=== PATIENT | female | born 1945 | race Caucasian/White ===

== ENCOUNTER 2017-12-15 05:53 | Day surgery (SDC) | payer MEDICARE ==
[~2017-12-15] VITALS: Ht 160 cm; Wt 59.0 kg
[~2017-12-15 05:53] MED LIST: ACYC800; ALBIPROI INH; ALLERGY PO; ASPI81EC PO; AZIT250; BUDE6HFA INH; CVS EYE BOTHEYES; GABA300; LOSA50 PO; MONT10T PO; OXYC5; PRED20; PROAIR INH; ROSU5 PO; STIOLTO UD; TRIAZOLAM
[2017-12-15] MEDS ORDERED: CLOP75 PO (13:16)
== END 2017-12-15 17:15 | disposition home or self-care (01) ==
LOC: MHTC 05:53
PROC: 047N3ZZ Dilation of Left Popliteal Artery, Percutaneous Approach (ICD-10-PCS; principal; 2017-12-15)
PROC: 047Q3ZZ Dilation of Left Anterior Tibial Artery, Percutaneous Approach (ICD-10-PCS; principal; 2017-12-15)
PROC: 047U3ZZ Dilation of Left Peroneal Artery, Percutaneous Approach (ICD-10-PCS; principal; 2017-12-15)
PROC: 047L35Z Dilation of Left Femoral Artery with Two Drug-eluting Intraluminal Devices, Percutaneous Approach (ICD-10-PCS; principal; 2017-12-15)
PROC: 04CQ3ZZ Extirpation of Matter from Left Anterior Tibial Artery, Percutaneous Approach (ICD-10-PCS; principal; 2017-12-15)
DX: I70.212 Atherosclerosis of native arteries of extremities with intermittent claudication, left leg (principal); I25.10 Atherosclerotic heart disease of native coronary artery without angina pectoris; Z87.891 Personal history of nicotine dependence; J44.9 Chronic obstructive pulmonary disease, unspecified; E78.5 Hyperlipidemia, unspecified; K21.9 Gastro-esophageal reflux disease without esophagitis
CPT/HCPCS: 37226; 37228; 37232; 75630; 75710; 75774; 85347; 99152; 99153; C1725; C1769; C1876; C1885; C1887; C1894; J0360; J1644; J2250; J2405; J2720; J3010; J7030; J7040; Q9967

== ENCOUNTER 2018-01-13 10:43 | Emergency (ER) | payer MEDICARE ==
[~2018-01-13] VITALS: Ht 160 cm; Wt 59.4 kg
[~2018-01-13 10:43] MED LIST changes: +CLOP75 PO
[2018-01-13] MEDS ORDERED: Ativan0.5 MG PO (11:18)
[2018-01-13 12:16] LABS: Glomerular Filtration Rate >60 (60-)
== END 2018-01-13 11:20 | disposition home or self-care (01) ==
LOC: ER 10:43
PROVIDERS: Internal Medicine Interventional Cardiology
DX: Z48.812 Encounter for surgical aftercare following surgery on the circulatory system (principal); F41.9 Anxiety disorder, unspecified; Z79.899 Other long term (current) drug therapy; Z79.82 Long term (current) use of aspirin; Z79.01 Long term (current) use of anticoagulants; Z87.891 Personal history of nicotine dependence
CPT/HCPCS: 36415; 82565; 99282

== ENCOUNTER 2018-01-15 11:35 | Emergency (ER) | payer MEDICARE ==
[~2018-01-15] VITALS: Ht 160 cm; Wt 59.0 kg
[~2018-01-15 11:35] MED LIST changes: +Ativan0.5 MG PO
== END 2018-01-15 12:59 | disposition home or self-care (01) ==
LOC: ER 11:35
DX: L76.22 Postprocedural hemorrhage of skin and subcutaneous tissue following other procedure (principal); I10 Essential (primary) hypertension; J44.9 Chronic obstructive pulmonary disease, unspecified; E78.5 Hyperlipidemia, unspecified; Z87.891 Personal history of nicotine dependence; Z79.899 Other long term (current) drug therapy; Z79.01 Long term (current) use of anticoagulants; Z79.82 Long term (current) use of aspirin
CPT/HCPCS: 99282

== ENCOUNTER 2018-01-15 16:30 | Emergency (ER) | payer MEDICARE ==
[~2018-01-15] VITALS: Ht 160 cm; Wt 59.0 kg
[2018-01-15 18:47] LABS: BASOPHILS ABSOLUTE AUTO 0.02 K/mm3 (0.00-0.23); BASOPHILS PERCENT AUTO 0 % (0-2); EOSINOPHILS ABSOLUTE AUTO 0.09 K/mm3 (0.00-0.68); EOSINOPHILS PERCENT AUTO 2 % (0-6); Hematocrit 32.2 % (33.0-51.0); Hemoglobin 10.7 g/dL (11.5-16.0); IMMATURE GRAN ABSOLUTE AUTO 0.01 K/mm3 (0.00-0.10); IMMATURE GRAN PERCENT AUTO 0 % (0-1); LYMPHOCYTES ABSOLUTE AUTO 0.61 K/mm3 (0.84-5.20); LYMPHOCYTES PERCENT AUTO 11 % (21-46); MONOCYTES ABSOLUTE AUTO 0.41 K/mm3 (0.16-1.47); MONOCYTES PERCENT AUTO 8 % (4-13); Mean Corpuscular HGB 30.7 pg (26.0-34.0); Mean Corpuscular HGB Conc 33.2 g/dL (31.5-36.5); Mean Corpuscular Volume 92 fL (80-100); Mean Platelet Volume 10.2 fL (9.1-12.4); NEUTROPHILS PERCENT AUTO 79 % (41-73); Platelet Count 211 K/mm3 (150-400); RDW Coefficient Variation 14.1 % (11.7-14.2); RDW Standard Deviation 47.2 fL (35.1-46.3); Red Blood Cell Count 3.49 M/mm3 (3.80-5.20); White Blood Cell Count 5.34 K/mm3 (4.00-11.30)
== END 2018-01-15 20:00 | disposition home or self-care (01) ==
LOC: ER 16:30
PROVIDERS: Emergency Medicine
DX: L76.22 Postprocedural hemorrhage of skin and subcutaneous tissue following other procedure (principal); I73.9 Peripheral vascular disease, unspecified; D68.32 Hemorrhagic disorder due to extrinsic circulating anticoagulants; T45.525A Adverse effect of antithrombotic drugs, initial encounter; Z79.899 Other long term (current) drug therapy; Z79.01 Long term (current) use of anticoagulants; Z79.82 Long term (current) use of aspirin; Z87.891 Personal history of nicotine dependence
CPT/HCPCS: 36415; 85025; 93922; 99283-25

== ENCOUNTER 2019-05-30 07:34 | Day surgery (SDC) | payer MEDICARE ==
[~2019-05-30] VITALS: Ht 160 cm; Wt 64.4 kg
[~2019-05-30 07:34] MED LIST changes: +LANS15EC; +MUCINEX D ER 61 EACH
--- NOTE | 2019-05-30 10:56 | NUR ---
05/30/19 [address] S PER DR. BRADFORD & DR. BAUMANN CASE CANCELLED R/T PT. NEEDING A CARDIOLOGY CONSULT BEFORE HER PROCEDURE. 12 LEAD EKG WAS DONE AT [facility]. WILL SEND 12 LEAD EKG TO HER PRIMARY CARE DR. & PT. WAS GIVEN COPY OF HER 3 LEAD & 12 LEAD EKG TO TAKE TO CARDIOLOGY. TALKED WITH LATRICIA PARKS AT DR. BAUMANN'S OFFICE & PER LATRICIA PT. CAN JUST CALL THE [facility]ART [facility] TO MAKE AN APPOINTMENT SINCE SHE IS ESTABLISHED ALREADY WITH [facility] RODRIGUEZ. WILL CALL PT. TO LET HER KNOW. CBC WAS DRAWN PER DR. BAUMANN'S ORDER. IV WAS DISCONTINUED & PT. WAS DISCHARGED.
[2019-05-30 11:04] LABS: BASOPHILS ABSOLUTE AUTO 0.02 K/mm3 (0.00-0.23); BASOPHILS PERCENT AUTO 1 % (0-2); EOSINOPHILS ABSOLUTE AUTO 0.04 K/mm3 (0.00-0.68); EOSINOPHILS PERCENT AUTO 1 % (0-6); Hematocrit 34.2 % (33.0-51.0); Hemoglobin 11.5 g/dL (11.5-16.0); IMMATURE GRAN ABSOLUTE AUTO 0.03 K/mm3 (0.00-0.10); IMMATURE GRAN PERCENT AUTO 1 % (0-1); LYMPHOCYTES ABSOLUTE AUTO 0.48 K/mm3 (0.84-5.20); LYMPHOCYTES PERCENT AUTO 12 % (21-46); MONOCYTES PERCENT AUTO 13 % (4-13); Mean Corpuscular HGB 30.3 pg (26.0-34.0); Mean Corpuscular HGB Conc 33.6 g/dL (31.5-36.5); Mean Corpuscular Volume 90 fL (80-100); NEUTROPHILS PERCENT AUTO 73 % (41-73); RDW Coefficient Variation 14.1 % (11.7-14.2); RDW Standard Deviation 47.1 fL (35.1-46.3); White Blood Cell Count 3.97 K/mm3 (4.00-11.30)
[2019-05-30 11:30] LABS: Platelet Count 202 K/mm3 (150-400)
== END 2019-05-30 10:15 | disposition home or self-care (01) ==
LOC: ORSCSDS 07:34
PROVIDERS: Surgery
DX: D64.9 Anemia, unspecified (principal); Z53.9 Procedure and treatment not carried out, unspecified reason
CPT/HCPCS: 85025; 93005; 93010; J0330; J0461; J2405; J2704; J7120

== ENCOUNTER 2020-04-08 10:33 | Inpatient (IN) | payer MEDICARE ==
[~2020-04-08] VITALS: Ht 160 cm; Wt 55.0 kg
[~2020-04-08 10:33] MED LIST changes: -ASPI81EC PO; -BUDE6HFA INH; -CLOP75 PO; -LOSA50 PO; -MONT10T PO; -PROAIR INH; -STIOLTO UD
[2020-04-08 11:40] LABS: BASOPHILS PERCENT AUTO 0 % (0-2); EOSINOPHILS PERCENT AUTO 0 % (0-6); IMMATURE GRAN PERCENT AUTO 0 % (0-1); LYMPHOCYTES PERCENT AUTO 7 % (21-46); MONOCYTES PERCENT AUTO 7 % (4-13); Mean Corpuscular HGB 24.6 pg (26.0-34.0); Mean Corpuscular HGB Conc 28.8 g/dL (31.5-36.5); Mean Corpuscular Volume 85 fL (80-100); Mean Platelet Volume 11.3 fL (9.1-12.4); Platelet Count 281 K/mm3 (150-400); RDW Coefficient Variation 16.3 % (11.7-14.2); RDW Standard Deviation 49.3 fL (35.1-46.3); Red Blood Cell Count 1.99 M/mm3 (3.80-5.20)
[2020-04-08 11:44] LABS: Hemoglobin 4.9 g/dL (11.5-16.0)
[2020-04-08 11:47] LABS: International Normalized Ratio 1.06; Prothrombin Time Results 11.3 Sec (9.7-11.5)
[2020-04-08 11:48] LABS: BASOPHILS ABSOLUTE AUTO 0.03 K/mm3 (0.00-0.23); EOSINOPHILS ABSOLUTE AUTO 0.02 K/mm3 (0.00-0.68); IMMATURE GRAN ABSOLUTE AUTO 0.03 K/mm3 (0.00-0.10); LYMPHOCYTES ABSOLUTE AUTO 0.66 K/mm3 (0.84-5.20); MONOCYTES ABSOLUTE AUTO 0.63 K/mm3 (0.16-1.47); NEUTROPHILS ABSOLUTE AUTO 7.93 K/mm3 (1.96-9.15); NEUTROPHILS PERCENT AUTO 85 % (41-73)
[2020-04-08 11:58] LABS: Alanine Aminotransfer (ALT/SGP 19 U/L (12-78); Albumin, Blood 3.3 g/dL (3.4-5.0); Albumin/Globulin Ratio 0.8 (0.8-1.8); Alk Phos 38 U/L (50-136); Anion Gap 6 mmol/L (6-16); Aspartate Aminotrans (AST/SGOT 24 U/L (12-37); Bilirubin, Total 0.4 mg/dL (0.1-1.0); Blood Urea Nitrogen 25 mg/dL (8-24); Bun/Creatinine Ratio 36.4 (12.0-20.0); CO2, Blood 24 mmol/L (21-32); Calcium, Blood 8.8 mg/dL (8.5-10.1); Chloride, Blood 108 mmol/L (98-108); Creatinine, Blood 0.69 mg/dL (0.40-1.00); Globulin, Blood 4.1 g/dL (2.2-4.0); Glomerular Filtration Rate >60 (60-); Glucose, Blood 109 mg/dL (70-99); Potassium, Blood 4.1 mmol/L (3.5-5.5); Sodium, Blood 138 mmol/L (136-145); Total Protein, Blood 7.4 g/dL (6.4-8.2)
[2020-04-08 12:13] LABS: Percent Saturation 33.2 % (15.0-50.0)
[2020-04-08] MEDS ORDERED: Aspir 8181 MG PO (13:10)
[2020-04-08] MEDS ORDERED: STIOLTO RESPIMAT4 G1 INH (13:11)
[2020-04-08] MEDS ORDERED: ALBU90OI INH (13:12)
[2020-04-08] MEDS ORDERED: SYMBICORT 160-4.6 GM INH (13:12)
[2020-04-08] MEDS ORDERED: MONT10T PO (13:14)
[2020-04-08] MEDS ORDERED: LANS15EC PO (13:14)
[2020-04-08] MEDS ORDERED: LOSA50 PO (13:14)
[2020-04-08] MEDS ORDERED: CLOP75 PO (13:14)
[2020-04-08] MEDS ORDERED: COENZYME Q-1050 MG PO (13:15)
[2020-04-08] MEDS ORDERED: GUAI600T33 PO (13:15)
[2020-04-08] MEDS ORDERED: BENADRYL25 MG PO (13:15)
[2020-04-08] MEDS ORDERED: MULVITA PO (13:16)
[2020-04-08] MEDS ORDERED: Vitamin D2000 UNIT PO (13:17)
[2020-04-08 16:02] LABS: Influenza A, PCR Negative (NEGATIVE); Influenza B, PCR Negative (NEGATIVE); Resp Syncytial Virus, PCR Negative (NEGATIVE); SARS-Cov-2 (COVID-19) PCR, MMC Negative (NEGATIVE)
--- NOTE | 2020-04-08 18:45 | NUR ---
SUMMARY PATIENT IS ALERT AND ORIENTED X4. RECIEVED REPORT FROM FLOYD PARKS. PATIENT ARRIVED TO ROOM VIA STRETCHER AND WAS SLID TO THE BED. PATIENTS FIRST BLOOD TRANSFUSION WAS STARTED IN ED, SECOND STARTED ON THE FLOOR BY THIS RN. PATIENTS SON ACCOMPANIED HER TO THE ROOM THEN LEFT SHORTLY AFTER. PATIENTS OXYGEN SATURATION >95% ON RA. VSS, NO ACUTE CHANGES. CALL LIGHT IN REACH, BED LOW POSITION. WILL CONTINUE TO MONITOR.
[2020-04-08 21:10] LABS: Hematocrit 23.4 % (33.0-51.0); Hemoglobin 7.4 g/dL (11.5-16.0)
--- NOTE | 2020-04-08 21:59 | NUR ---
ASSUMED CARE OF PATIENT AT APPROXIMATELY 1910 FROM ROSALINE Gonzales RN. PATIENT RECIEVING BLOOD TRANSFUSION DURING BEDSIDE REPORT. PATIENT DENIES PAIN, NUMBNESS, TINGLING, DIZZINESS OR NAUSEA. PATIENT COMPLAINS OF SHORTNESS OF BREATH AT BASELINE; ONE ASSIST OUT OF BED. REPORTS FEELS BETTER COMPARED TO ADMIT. 100% VENTRICULAR PACED ON TELE; OXYGEN SATURATION ABOVE 90% ON ROOM AIR. PROTONIX GTT. PATIENT REPORTS THAT DR. LOREDO WAS BEDSIDE AND PATIENT REPORTS SHE WILL HAVE SCOPE TOMORROW. PATIENT CURRENTLY RESTING IN BED; CALL LIGHT IN REACH; BED IN LOWEST POSISTION; BED ALARM ON; WILL CONTINUE TO MONITOR AND ASSESS UNTIL END OF SHIFT.
--- NOTE | 2020-04-09 01:34 | NUR ---
PATIENT REPORTS SCD'S GAVE HER A PANIC ATTACK; "I COULDN'T TALK"; PATIENT LEANING OVER SIDE OF BED OVER TRASHCAN. PATIENT REPORTS ATIVAN PO GAVE MAKE HER DRY HEAVE; MEDICATED WITH ZOFRAN; GOOD RESULTS. PATIENT REPORTS XANAX MAKES HER DIZZY.
[2020-04-09 03:12] LABS: Hemoglobin 8.4 g/dL (11.5-16.0)
[2020-04-09 03:44] LABS: Alanine Aminotransfer (ALT/SGP 15 U/L (12-78); Albumin/Globulin Ratio 0.8 (0.8-1.8); Alk Phos 31 U/L (50-136); Anion Gap 5 mmol/L (6-16); Aspartate Aminotrans (AST/SGOT 23 U/L (12-37); Bilirubin, Total 1.7 mg/dL (0.1-1.0); Blood Urea Nitrogen 21 mg/dL (8-24); Bun/Creatinine Ratio 32.1 (12.0-20.0); CO2, Blood 25 mmol/L (21-32); Calcium, Blood 8.1 mg/dL (8.5-10.1); Chloride, Blood 110 mmol/L (98-108); Creatinine, Blood 0.66 mg/dL (0.40-1.00); Globulin, Blood 3.7 g/dL (2.2-4.0); Glomerular Filtration Rate >60 (60-); Glucose, Blood 94 mg/dL (70-99); Potassium, Blood 3.6 mmol/L (3.5-5.5); Sodium, Blood 140 mmol/L (136-145); Total Protein, Blood 6.7 g/dL (6.4-8.2)
--- NOTE | 2020-04-09 06:23 | NUR ---
PATIENT SLEPT ABOUT FOUR HOURS LAST NIGHT. HEMOGLOBIN 8.4; TROPONIN TRENDING UP; CALLED DR. COLEMAN THIS AM TO GET ANOTHER Q6H TROPONIN. PATIENT REPORTS FEELING BETTER AFTER ATIVAN AND OXYGEN. VSS. WILL CONTINUE TO MONITOR AND ASSESS UNTIL END OF SHIFT.
--- NOTE | 2020-04-09 08:25 | NUR ---
pt laying in bed watching tv, denies complaints of pain, dizziess, reports a slight amount of sob when she got up to the bsc, a/ox3, pleasant and cooperative with care, follows commands well, lungs are clear in upper rubio, dim in bases, she is on 02 because of elevated trops, hrr, tele in place running paced rhythm, see strip, no edema noted, ppp+2, cap refill <3sec, vs stable, afebrile, iv sites are clear and patent, btx4, abd flat soft nontender, voids with out diff, skin c/w/d, maew, aguilar, call light in reach.
--- NOTE | 2020-04-09 09:20 | NUR ---
pt left for egd this am.
--- NOTE | 2020-04-09 09:26 | NUR ---
History, Chart, Medications and Allergies reviewed before start of procedure.Patient confirms NPO status and agrees with scheduled surgery.
--- NOTE | 2020-04-09 09:54 | NUR ---
04/09/20 0954 Rosina Javier History, Chart, Medications and Allergies reviewed before start of procedure. PATIENT CONFIRMS NPO STATUS AND AGREES WITH SCHEDULED PROCEDURE. MONITOR INTACT WITH CONTINUOUS PULSE OXIMETRY AND INTERMITTENT BP. O2 VIA N/C INTACT THROUGHOUT SEDATION/PROCEDURE. 3-LEAD EKG REVIEWED WITH PHYSICIAN PRIOR TO START OF PROCEDURE. DR. ANDRE PROVIDING MAC. Bite Block Placed.
[2020-04-09 10:07] LABS: Hematocrit 26.8 % (33.0-51.0); Hemoglobin 8.6 g/dL (11.5-16.0)
--- NOTE | 2020-04-09 12:43 | NUR ---
PT HAS BEEN IN HER ROOM POST Albin NOVOA. EATING BREAKFAST, SITTING ON THE SIDE OF THE BED. NO COMPLAINTS STATES SHE FEELS GOOD. CALL LIGHT IN REACH.
[2020-04-09 15:40] LABS: Hematocrit 25.7 % (33.0-51.0)
--- NOTE | 2020-04-09 18:02 | NUR ---
pt had her egd, recieved 3 clips, doing well, vs stable, no needs at this time, call light in reach, was changed to medical status, will transfer tonight, call light in reach.
--- NOTE | 2020-04-09 18:17 | NUR ---
pt is being transfered to surgical floor, report given to recieving nurse, will take her via wheelchair with all her belongings.
[2020-04-10 04:12] LABS: Hemoglobin 8.1 g/dL (11.5-16.0); Mean Corpuscular HGB 26.8 pg (26.0-34.0); Mean Corpuscular HGB Conc 31.2 g/dL (31.5-36.5); Mean Corpuscular Volume 86 fL (80-100); Platelet Count 187 K/mm3 (150-400); RDW Coefficient Variation 15.9 % (11.7-14.2); RDW Standard Deviation 48.1 fL (35.1-46.3); Red Blood Cell Count 3.02 M/mm3 (3.80-5.20); White Blood Cell Count 7.94 K/mm3 (4.00-11.30)
[2020-04-10 04:29] LABS: Anion Gap 3 mmol/L (6-16); Blood Urea Nitrogen 16 mg/dL (8-24); Bun/Creatinine Ratio 23.7 (12.0-20.0); CO2, Blood 29 mmol/L (21-32); Calcium, Blood 8.5 mg/dL (8.5-10.1); Chloride, Blood 106 mmol/L (98-108); Creatinine, Blood 0.67 mg/dL (0.40-1.00); Glomerular Filtration Rate >60 (60-); Glucose, Blood 88 mg/dL (70-99); Potassium, Blood 3.9 mmol/L (3.5-5.5); Sodium, Blood 138 mmol/L (136-145)
--- NOTE | 2020-04-10 05:24 | NUR ---
SHIFT SUMMARY: KALANI IS A&OX4. VSS, NO ACUTE EVENTS OVERNIGHT. SHE IS MAINTAINING SATS ORA. SHE DOES BECOME SHORT OF BREATH ON EXERTION. SHE IS TOLERATING PO INTAKE WELL. SHE DENIES PAIN. SHE IS A ONE PERSON STANBY ASSIST. SHE DENIES ANY DIFFICULTIES URINATING. SHE USES HER CALL LIGHT APPROPRIATELY. SHE IS LYING IN BED WITH HER CALL LIGHT IN REACH. WILL REPORT TO DAY SHIFT RN.
[2020-04-10] MEDS ORDERED: PANT40 PO (10:08)
--- NOTE | 2020-04-10 17:30 | NUR ---
1430 DISCHARGED TO HOME WITH SON. PT DENIES PAIN AND REPORTS IS FEELING MUCH LESS WEAK AND SOB THAN SHE DID YESTERDAY
== END 2020-04-10 16:46 | disposition home or self-care (01) | DRG 377 ==
LOC: ER 10:33 → SURS 13:28 → PCU 13:28 → SURS 04-09 18:46
PROVIDERS: Internal Medicine Gastroenterology; Nurse Practitioner Acute Care; Physician Assistant; ADMIT Internal Medicine
PROC: 30233N1 Transfusion of Nonautologous Red Blood Cells into Peripheral Vein, Percutaneous Approach (ICD-10-PCS; 2020-04-08)
PROC: 0W3P8ZZ Control Bleeding in Gastrointestinal Tract, Via Natural or Artificial Opening Endoscopic (ICD-10-PCS; principal; 2020-04-09 09:30)
DX: K31.811 Angiodysplasia of stomach and duodenum with bleeding (principal); I21.A1 Myocardial infarction type 2; D62 Acute posthemorrhagic anemia; J44.1 Chronic obstructive pulmonary disease with (acute) exacerbation; Z79.01 Long term (current) use of anticoagulants; Z79.82 Long term (current) use of aspirin; Z87.891 Personal history of nicotine dependence; I73.9 Peripheral vascular disease, unspecified; I10 Essential (primary) hypertension; K21.9 Gastro-esophageal reflux disease without esophagitis; Z95.0 Presence of cardiac pacemaker; K22.2 Esophageal obstruction; K44.9 Diaphragmatic hernia without obstruction or gangrene; M35.00 Sjogren syndrome, unspecified; Z95.820 Peripheral vascular angioplasty status with implants and grafts
CPT/HCPCS: 0241U; 36415; 36430; 71045; 80048; 80053; 82272; 82728; 83540; 83550; 83880; 84484; 85014; 85018; 85025; 85027; 85610; 85730; 86850; 86900; 86901; 86923; 93005; 93010; 94640; 94760; 96374; 99285-25; A9270-GY; C9113; J2405; J2704; J7030; J7120; P9016

== ENCOUNTER 2020-07-10 00:56 | Day surgery (SDC) | payer MEDICARE ==
[~2020-07-10 00:56] MED LIST changes: +ALBU90OI INH; +Aspir 8181 MG PO; +BENADRYL25 MG PO; +CLOP75 PO; +COENZYME Q-1050 MG PO; +GUAI600T33 PO; +LANS15EC PO; +LOSA50 PO; +MONT10T PO; +MULVITA PO; +PANT40 PO; +STIOLTO RESPIMAT4 G1 INH; +SYMBICORT 160-4.6 GM INH; +Vitamin D2000 UNIT PO
[2020-07-10] MEDS ORDERED: ROSU5 PO (19:22)
[2020-07-10] MEDS ORDERED: FURO40 PO (19:22)
[2020-07-10] MEDS ORDERED: SERT50 PO (19:23)
== END 2020-07-10 14:47 | disposition home or self-care (01) ==
LOC: ATC 00:56
DX: E61.1 Iron deficiency (principal); J43.8 Other emphysema; I11.0 Hypertensive heart disease with heart failure; I50.32 Chronic diastolic (congestive) heart failure; I25.10 Atherosclerotic heart disease of native coronary artery without angina pectoris; K21.9 Gastro-esophageal reflux disease without esophagitis; E85.3 Secondary systemic amyloidosis; I08.0 Rheumatic disorders of both mitral and aortic valves; Z79.02 Long term (current) use of antithrombotics/antiplatelets; Z95.0 Presence of cardiac pacemaker; Z88.8 Allergy status to other drugs, medicaments and biological substances
CPT/HCPCS: 96365; J2916

== ENCOUNTER 2020-07-14 09:18 | Day surgery (SDC) | payer MEDICARE ==
[~2020-07-14 09:18] MED LIST changes: +FURO40 PO; +SERT50 PO
== END 2020-07-14 12:25 | disposition home or self-care (01) ==
LOC: ATC 09:18
DX: E61.1 Iron deficiency (principal); J44.9 Chronic obstructive pulmonary disease, unspecified; I11.0 Hypertensive heart disease with heart failure; I50.9 Heart failure, unspecified
CPT/HCPCS: 96365; J2916

== ENCOUNTER 2020-07-16 00:04 | Day surgery (SDC) | payer MEDICARE | END 2020-07-16 12:13 | disposition home or self-care (01) | LOC: ATC 00:04 | DX: E61.1 Iron deficiency (principal); I25.10 Atherosclerotic heart disease of native coronary artery without angina pectoris; J43.8 Other emphysema; K21.9 Gastro-esophageal reflux disease without esophagitis; Z88.8 Allergy status to other drugs, medicaments and biological substances | CPT/HCPCS: 96365; J2916 ==

== ENCOUNTER 2020-08-12 00:38 | Day surgery (SDC) | payer MEDICARE | END 2020-08-12 11:35 | disposition home or self-care (01) | LOC: ATC 00:38 | DX: D50.9 Iron deficiency anemia, unspecified (principal); I11.0 Hypertensive heart disease with heart failure; I50.32 Chronic diastolic (congestive) heart failure; J43.8 Other emphysema; I25.10 Atherosclerotic heart disease of native coronary artery without angina pectoris; I34.0 Nonrheumatic mitral (valve) insufficiency; I70.392 Other atherosclerosis of unspecified type of bypass graft(s) of the extremities, left leg; K21.9 Gastro-esophageal reflux disease without esophagitis; Z87.891 Personal history of nicotine dependence; Z88.8 Allergy status to other drugs, medicaments and biological substances; Z95.0 Presence of cardiac pacemaker; Z95.820 Peripheral vascular angioplasty status with implants and grafts | CPT/HCPCS: 96365; J2916 ==

== ENCOUNTER 2020-08-13 00:02 | Day surgery (SDC) | payer MEDICARE | END 2020-08-13 16:55 | disposition home or self-care (01) | LOC: ATC 00:02 | DX: E50.9 Vitamin A deficiency, unspecified (principal); J43.8 Other emphysema; I70.392 Other atherosclerosis of unspecified type of bypass graft(s) of the extremities, left leg; E85.3 Secondary systemic amyloidosis; I44.2 Atrioventricular block, complete; I08.0 Rheumatic disorders of both mitral and aortic valves; I25.10 Atherosclerotic heart disease of native coronary artery without angina pectoris; K21.9 Gastro-esophageal reflux disease without esophagitis; Z79.02 Long term (current) use of antithrombotics/antiplatelets; Z87.891 Personal history of nicotine dependence; Z95.0 Presence of cardiac pacemaker | CPT/HCPCS: 96365; J2916 ==

== ENCOUNTER 2020-08-14 11:07 | Day surgery (SDC) | payer MEDICARE ==
[~2020-08-14] VITALS: Ht 160 cm; Wt 50.1 kg
--- NOTE | 2020-08-14 11:49 | NUR ---
08/14/20 1149 LAURENCE KURTZ IV AND SALINE LOCK IN PLACE,PATENT AND USEABLE FOR LR 1000CC BAG. BOTH INFORMED AND OK WITH ITS USAGE.
--- NOTE | 2020-08-14 13:06 | NUR ---
08/14/20 1306 LAURENCE KURTZ IV SITE FREE OF VISIBLE INFILTRATION OR BRUSING AT TIME OF IV DC.
--- NOTE | 2020-08-14 14:06 | NUR ---
08/14/20 1406 LAURENCE KURTZ EPINEPHRINE 2CC USED BY DR LOREDO DURING PROCEDURE
== END 2020-08-14 12:59 | disposition home or self-care (01) ==
LOC: ORSCSDS 11:07
PROVIDERS: Internal Medicine Gastroenterology
PROC: 0W3P8ZZ Control Bleeding in Gastrointestinal Tract, Via Natural or Artificial Opening Endoscopic (ICD-10-PCS; principal; 2020-08-14 12:30)
DX: D50.9 Iron deficiency anemia, unspecified (principal); Q27.33 Arteriovenous malformation of digestive system vessel; K44.9 Diaphragmatic hernia without obstruction or gangrene; I10 Essential (primary) hypertension; J44.9 Chronic obstructive pulmonary disease, unspecified; Z95.0 Presence of cardiac pacemaker; Z87.891 Personal history of nicotine dependence
CPT/HCPCS: 96365; J2001; J2704; J2916; J7120

== ENCOUNTER 2020-09-15 00:24 | Day surgery (SDC) | payer MEDICARE | END 2020-09-15 10:21 | disposition home or self-care (01) | LOC: ATC 00:24 | DX: D50.9 Iron deficiency anemia, unspecified (principal); I70.392 Other atherosclerosis of unspecified type of bypass graft(s) of the extremities, left leg; G47.09 Other insomnia; I73.89 Other specified peripheral vascular diseases; E85.3 Secondary systemic amyloidosis; M35.03 Sjogren syndrome with myopathy; I44.2 Atrioventricular block, complete; I35.0 Nonrheumatic aortic (valve) stenosis; I34.0 Nonrheumatic mitral (valve) insufficiency; I25.10 Atherosclerotic heart disease of native coronary artery without angina pectoris; J44.9 Chronic obstructive pulmonary disease, unspecified; K31.819 Angiodysplasia of stomach and duodenum without bleeding | CPT/HCPCS: 96365; J2916 ==

== ENCOUNTER 2020-09-16 00:45 | Day surgery (SDC) | payer MEDICARE | END 2020-09-16 11:40 | disposition home or self-care (01) | LOC: ATC 00:45 | DX: D50.9 Iron deficiency anemia, unspecified (principal); I70.392 Other atherosclerosis of unspecified type of bypass graft(s) of the extremities, left leg; G47.09 Other insomnia; I73.89 Other specified peripheral vascular diseases; E85.3 Secondary systemic amyloidosis; M35.03 Sjogren syndrome with myopathy; I44.2 Atrioventricular block, complete; I35.0 Nonrheumatic aortic (valve) stenosis; I34.0 Nonrheumatic mitral (valve) insufficiency; I25.10 Atherosclerotic heart disease of native coronary artery without angina pectoris; K31.819 Angiodysplasia of stomach and duodenum without bleeding | CPT/HCPCS: 96365; J2916 ==

== ENCOUNTER 2020-09-17 02:04 | Day surgery (SDC) | payer MEDICARE | END 2020-09-17 11:39 | disposition home or self-care (01) | LOC: ATC 02:04 | DX: D50.9 Iron deficiency anemia, unspecified (principal); J43.8 Other emphysema; I25.10 Atherosclerotic heart disease of native coronary artery without angina pectoris; Z88.8 Allergy status to other drugs, medicaments and biological substances; Z87.891 Personal history of nicotine dependence | CPT/HCPCS: 96365; J2916 ==

== ENCOUNTER 2020-10-13 04:59 | Day surgery (SDC) | payer MEDICARE | END 2020-10-13 12:18 | disposition home or self-care (01) | LOC: ATC 04:59 | DX: D50.9 Iron deficiency anemia, unspecified (principal); J43.8 Other emphysema; I25.10 Atherosclerotic heart disease of native coronary artery without angina pectoris; I50.32 Chronic diastolic (congestive) heart failure; Z88.8 Allergy status to other drugs, medicaments and biological substances | CPT/HCPCS: 96365; J2916 ==

== ENCOUNTER 2020-10-14 04:47 | Day surgery (SDC) | payer MEDICARE | END 2020-10-14 11:43 | disposition home or self-care (01) | LOC: ATC 04:47 | DX: D50.9 Iron deficiency anemia, unspecified (principal); I25.10 Atherosclerotic heart disease of native coronary artery without angina pectoris; J44.9 Chronic obstructive pulmonary disease, unspecified; I11.0 Hypertensive heart disease with heart failure; I50.9 Heart failure, unspecified; Z88.8 Allergy status to other drugs, medicaments and biological substances; Z87.891 Personal history of nicotine dependence | CPT/HCPCS: 96365; J2916 ==

== ENCOUNTER 2020-10-15 05:38 | Day surgery (SDC) | payer MEDICARE | END 2020-10-15 11:47 | disposition home or self-care (01) | LOC: ATC 05:38 | DX: D50.9 Iron deficiency anemia, unspecified (principal); I70.392 Other atherosclerosis of unspecified type of bypass graft(s) of the extremities, left leg; J43.8 Other emphysema; G47.09 Other insomnia; I73.89 Other specified peripheral vascular diseases; E85.3 Secondary systemic amyloidosis; M35.03 Sjogren syndrome with myopathy; I44.2 Atrioventricular block, complete; I35.0 Nonrheumatic aortic (valve) stenosis; I34.0 Nonrheumatic mitral (valve) insufficiency; K21.9 Gastro-esophageal reflux disease without esophagitis | CPT/HCPCS: 96365; J2916 ==

== ENCOUNTER 2021-07-02 14:13 | Day surgery (SDC) | payer MEDICARE ==
[~2021-07-02] VITALS: Ht 160 cm; Wt 50.5 kg
--- NOTE | 2021-07-02 17:26 | NUR ---
07/02/21 1726 Guadalupe Brown PATIENT HAD LARYNGOSPASMS, 5ML 2%LIDOCAINE GIVEN, 02 CHANGED TO A POM MASK, JAW THRUST TO HELP OPEN AIRWAY. PATIENT'S 02 DECREASED TO 78% ON 3LPM VIA NC. AFTER PATIENT GIVEN 2%LIDOCAINE AND CHANGED TO POM MASK 02 SATS STARTED TO INCREASE. PATIENT STABALIZED AND PROCEDURE WAS RESUMED AND FINISHED.
--- NOTE | 2021-07-02 18:25 | NUR ---
07/02/211824 LUIS FELIPE HIGUERA PT WAS STABLE DENIED ANY PAIN OR DISCOMFORT STEADY ON FEET ON DC
== END 2021-07-02 18:25 | disposition home or self-care (01) ==
LOC: ORSCSDS 14:13
PROVIDERS: Internal Medicine Gastroenterology
PROC: 0DJ08ZZ Inspection of Upper Intestinal Tract, Via Natural or Artificial Opening Endoscopic (ICD-10-PCS; principal; 2021-07-02 15:30)
DX: D50.0 Iron deficiency anemia secondary to blood loss (chronic) (principal); K31.811 Angiodysplasia of stomach and duodenum with bleeding; K44.9 Diaphragmatic hernia without obstruction or gangrene; I10 Essential (primary) hypertension; Z95.0 Presence of cardiac pacemaker; J44.9 Chronic obstructive pulmonary disease, unspecified; Q27.30 Arteriovenous malformation, site unspecified; E78.5 Hyperlipidemia, unspecified; K21.9 Gastro-esophageal reflux disease without esophagitis; Z87.891 Personal history of nicotine dependence; Z79.899 Other long term (current) drug therapy
CPT/HCPCS: J0461; J2405; J2704; J7120

== ENCOUNTER 2022-12-16 12:24 | Day surgery (SDC) | payer MEDICARE ==
[~2022-12-16] VITALS: Ht 160 cm; Wt 47.4 kg
[2022-12-16] MEDS ORDERED: STIOLTO RESPIMAT4 G1 INH (13:16)
[2022-12-16] MEDS ORDERED: BREO ELLIPTA 11 EAC1 INH (13:21)
[2022-12-16 16:12] VITALS: BP 146/58
== END 2022-12-16 16:00 | disposition home or self-care (01) ==
LOC: ORSCSDS 12:24
PROVIDERS: Internal Medicine Gastroenterology
PROC: 0DBL8ZX Excision of Transverse Colon, Via Natural or Artificial Opening Endoscopic, Diagnostic (ICD-10-PCS; principal; 2022-12-16 13:45)
PROC: 0DBH8ZX Excision of Cecum, Via Natural or Artificial Opening Endoscopic, Diagnostic (ICD-10-PCS; principal; 2022-12-16 13:45)
PROC: 0DBK8ZX Excision of Ascending Colon, Via Natural or Artificial Opening Endoscopic, Diagnostic (ICD-10-PCS; principal; 2022-12-16 13:45)
PROC: 0DBN8ZX Excision of Sigmoid Colon, Via Natural or Artificial Opening Endoscopic, Diagnostic (ICD-10-PCS; principal; 2022-12-16 13:45)
DX: D50.9 Iron deficiency anemia, unspecified (principal); D12.5 Benign neoplasm of sigmoid colon; D12.3 Benign neoplasm of transverse colon; K63.5 Polyp of colon; K64.8 Other hemorrhoids; K57.30 Diverticulosis of large intestine without perforation or abscess without bleeding; Z87.19 Personal history of other diseases of the digestive system; K21.9 Gastro-esophageal reflux disease without esophagitis; I10 Essential (primary) hypertension; Z95.0 Presence of cardiac pacemaker; J44.9 Chronic obstructive pulmonary disease, unspecified; E78.5 Hyperlipidemia, unspecified; I25.10 Atherosclerotic heart disease of native coronary artery without angina pectoris; I73.9 Peripheral vascular disease, unspecified; Z87.891 Personal history of nicotine dependence; Z79.899 Other long term (current) drug therapy
CPT/HCPCS: 88305; J2704; J7120

== ENCOUNTER 2024-07-09 09:36 | Day surgery (SDC) | payer MEDICARE ==
[~2024-07-09] VITALS: Ht 160 cm; Wt 46.0 kg
[~2024-07-09 09:36] MED LIST changes: +BREO ELLIPTA 11 EAC1 INH; +Crestor40 MG PO
[2024-07-09] MEDS ORDERED: KLOR-CON 1010 ME9 PO (10:09)
[2024-07-09] MEDS ORDERED: NS 250 ML IV ONE (10:14)
[2024-07-09] MEDS ORDERED: Verapamil HCL 2.5 MG/ML 2ML Injection ONE (10:14)
[2024-07-09] MEDS ORDERED: NS 1,000 ML IV ONE ×2 (10:14→10:19)
[2024-07-09] MEDS ORDERED: Heparin Sodium 1000 Units/ML 10ML MDV ONE (10:14)
[2024-07-09 10:15] VITALS: BP 155/73
[2024-07-09] MEDS ORDERED: Midazolam HCl 1MG / ML 2ML Vial ONE (10:19)
[2024-07-09] MEDS ORDERED: FentaNYL Citrate 50 MCG/ML 2 ML Injection ONE (10:19)
[2024-07-09 10:30] VITALS: BP 142/94
--- NOTE | 2024-07-09 10:50 | NUR ---
DR HAYES CANCELLED PATIENTS PROCEDURE FOR TODAY D/T LAB RESULTS (K+ 2.9). NEW ORDERS IN PLACE. PT POTASSIUM INCREASED TO 20 MEQ ONCE DAILY, STARTING TODAY. PT TO FOLLOW UP IN 2-[address] KC. NEW APPT MADE FOR JULY 17, 2024 @ 11 AM. PT IV DC'D. CATH INTACT. PRESSURE DSG APPLIED. PT DRESSES SELF AND DC TO HOME VIA SON BY WC.
== END 2024-07-09 10:50 | disposition home or self-care (01) ==
LOC: MHTC 09:36
DX: I05.2 Rheumatic mitral stenosis with insufficiency (principal); R94.31 Abnormal electrocardiogram [ECG] [EKG]; Z53.09 Procedure and treatment not carried out because of other contraindication
CPT/HCPCS: 93005; 93010; J1644; J2250; J3010; J7030; J7050

== ENCOUNTER 2024-07-17 16:19 | Inpatient (IN) | payer MEDICARE ==
[~2024-07-17] VITALS: Ht 160 cm; Wt 47.6 kg
[~2024-07-17 16:19] MED LIST changes: +KLOR-CON 1010 ME9 PO
[2024-07-17] MEDS ORDERED: Albuterol 2.5 MG/3 ML VIAL INH SCH (16:55)
[2024-07-17] MEDS ORDERED: Ondansetron HCl 2 MG / ML 2ML Vial IV ONE (17:20)
[2024-07-17] MEDS ORDERED: Ondansetron 4 MG SoluTab SL ONE (17:20)
[2024-07-17 17:45] LABS: Base Excess Venous -6.1 mmol/L; Bicarbonate Venous 19.4 mmol/L (24.0-30.0); pH Blood Venous 7.26 (7.34-7.37)
[2024-07-17 17:49] LABS: BASOPHILS ABSOLUTE AUTO 0.03 K/mm3 (0.00-0.23); BASOPHILS PERCENT AUTO 0 % (0-2); EOSINOPHILS PERCENT AUTO 0 % (0-6); Hematocrit 33.6 % (33.0-51.0); Hemoglobin 10.7 g/dL (11.5-16.0); IMMATURE GRAN ABSOLUTE AUTO 0.05 K/mm3 (0.00-0.10); IMMATURE GRAN PERCENT AUTO 0 % (0-1); LYMPHOCYTES ABSOLUTE AUTO 0.74 K/mm3 (0.84-5.20); LYMPHOCYTES PERCENT AUTO 6 % (21-46); MONOCYTES ABSOLUTE AUTO 0.83 K/mm3 (0.16-1.47); MONOCYTES PERCENT AUTO 6 % (4-13); Mean Corpuscular HGB 30.5 pg (26.0-34.0); Mean Corpuscular HGB Conc 31.8 g/dL (31.5-36.5); Mean Corpuscular Volume 96 fL (80-100); Mean Platelet Volume 12.3 fL (9.1-12.4); NEUTROPHILS ABSOLUTE AUTO 11.75 K/mm3 (1.96-9.15); NEUTROPHILS PERCENT AUTO 88 % (41-73); Platelet Count 188 K/mm3 (150-400); RDW Standard Deviation 52.1 fL (35.1-46.3); Red Blood Cell Count 3.51 M/mm3 (3.80-5.20)
[2024-07-17 18:10] LABS: Albumin, Blood 3.3 g/dL (3.4-5.0); Albumin/Globulin Ratio 0.6 (0.8-1.8); Bilirubin, Total 1.1 mg/dL (0.1-1.0); Bun/Creatinine Ratio 25.8 (12.0-20.0); Calcium, Blood 9.3 mg/dL (8.5-10.1); Creatinine, Blood 0.97 mg/dL (0.40-1.00); Globulin, Blood 5.7 g/dL (2.2-4.0); Potassium, Blood 5.8 mmol/L (3.5-5.5)
[2024-07-17 18:10] LABS: Influenza A, PCR NEGATIVE (NEGATIVE); Influenza B, PCR NEGATIVE (NEGATIVE); Resp Syncytial Virus, PCR NEGATIVE (NEGATIVE); SARS-Cov-2 (COVID-19) PCR, MMC NEGATIVE (NEGATIVE)
[2024-07-17] MEDS ORDERED: Insulin Regular 100 Unit/ML 1ML Dose IV ONE (18:55)
[2024-07-17] MEDS ORDERED: Calcium Chloride 10% 100 MG/ML 10ML Vial IV SCH (18:55)
[2024-07-17] MEDS ORDERED: Dextrose 50% 50 ML Syringe IV ONE (18:55)
[2024-07-17] MEDS ORDERED: Dextrose 50% 50 ML Vial IV ONE (18:55)
[2024-07-17 19:27] LABS: Calcium, Ionized (POC) 1.05 mmol/L (1.10-1.46); Chloride (POC) 97 mmol/L (98-108); Creatinine (POC) 1.2 mg/dL (0.6-1.0); Glucose (ISTAT POC) 98 mg/dL (70-99); Hemoglobin (POC) 12.2 g/dL (12.0-16.0); Sodium (POC) 129 mmol/L (135-148); Total CO2 (POC) 20 mmol/L (21-32)
[2024-07-17] MEDS ORDERED: Guaifenesin/Dextromethorphan Syrup 5 ML UDC PO PRN (20:20)
[2024-07-17] MEDS ORDERED: Ipratropium/Albuterol SulF 2.5-0.5MG/3 ML Amp INH SCH (20:20)
[2024-07-17] MEDS ORDERED: Albuterol 2.5 MG/3 ML VIAL INH PRN (20:20)
[2024-07-17] MEDS ORDERED: Benzonatate 100 MG Cap PO PRN (20:25)
[2024-07-17] MEDS ORDERED: Ondansetron HCl 2 MG / ML 2ML Vial IV PRN (20:25)
[2024-07-17] MEDS ORDERED: Melatonin 3 MG Tab PO PRN (20:25)
[2024-07-17] MEDS ORDERED: NS 1,000 ML IV SCH (20:25)
[2024-07-17] MEDS ORDERED: FLU VACC TS2024-25(6MOS UP)/PF 45 MCG/0.5 ML SYRINGE IM SCH (20:25)
[2024-07-17 20:54] LABS: Beta-hydroxybutyrate 9.9 mg/dL (0.2-2.8); Bun/Creatinine Ratio 27.4 (12.0-20.0); Calcium, Blood 9.1 mg/dL (8.5-10.1); Creatinine, Blood 0.99 mg/dL (0.40-1.00); Potassium, Blood 4.7 mmol/L (3.5-5.5)
[2024-07-17] MEDS ORDERED: Losartan Potassium 25 MG Tab PO SCH (21:00)
[2024-07-17] MEDS ORDERED: Azithromycin 500 MG in NS 250 ML IV SCH (21:00)
[2024-07-17] MEDS ORDERED: MethylPREDNISolone Sod Succ 125 MG Vial IV SCH (21:00)
[2024-07-17] MEDS ORDERED: Benzonatate 100 MG Cap PO ONE (21:00)
[2024-07-17] MEDS ORDERED: NS 500 ML IV ONE (21:00)
[2024-07-17] MEDS ORDERED: GuaiFENesin 600 MG TabCR PO SCH (21:00)
[2024-07-17 21:54] LABS: Bicarbonate Venous 18.9 mmol/L (24.0-30.0)
[2024-07-17 21:56] LABS: PCO2 Venous 56.3 mmHg (38-42)
[2024-07-17] MEDS ORDERED: NS 1,000 ML IV ONE (22:04)
[2024-07-18 02:59] LABS: Source, Urine Clean Catch
[2024-07-18 03:02] LABS: Appearance, Urine Cloudy (Clear); Bilirubin, Urine Neg (Neg); Blood, Urine 1+ (Neg); Color, Urine Amber (P-Yellow); Glucose Qualitative, Urine Neg (Neg); Ketones, Urine 1+ (Neg); Leukocyte Esterase, Urine 1+ (Neg); Nitrite, Urine Neg (Neg); Protein, Urine 3+ (Neg); Specific Gravity, Urine 1.025 (1.003-1.022); Urobilinogen, Urine 1+ (Normal)
[2024-07-18 03:13] LABS: Bacteria Many /hpf; Squamous Epithelial Cells Many /hpf (Few)
[2024-07-18 04:50] VITALS: BP 143/50
--- NOTE | 2024-07-18 04:59 | NUR ---
SHIFT SUMMARY 78 YR F ADMITTED ON 07/17/24. FULL CODE. ASSUMED CARE OF PT AT APPROX 0300. NO ACUTE CHANGES. PT IS CURRENTLY ON 2 L O2 AND SATTING IN THE HIGH 90'S. SHE PREFERS TO SIT AT EDGE OF BED STATING THAT IT IS EASIER TO BREATHE. NO C/O PAIN OR DISCOMFORT OTHER THAN DYSPNEA. BED IN LOW POSITION AND CALL LIGHT IN REACH.
[2024-07-18 05:59] LABS: BASOPHILS ABSOLUTE AUTO 0.04 K/mm3 (0.00-0.23); BASOPHILS PERCENT AUTO 0 % (0-2); EOSINOPHILS PERCENT AUTO 0 % (0-6); Hematocrit 28.8 % (33.0-51.0); Hemoglobin 9.4 g/dL (11.5-16.0); IMMATURE GRAN ABSOLUTE AUTO 0.06 K/mm3 (0.00-0.10); IMMATURE GRAN PERCENT AUTO 0 % (0-1); LYMPHOCYTES PERCENT AUTO 4 % (21-46); MONOCYTES PERCENT AUTO 3 % (4-13); Mean Corpuscular HGB 31.4 pg (26.0-34.0); Mean Corpuscular HGB Conc 32.6 g/dL (31.5-36.5); Mean Corpuscular Volume 96 fL (80-100); Mean Platelet Volume 12.3 fL (9.1-12.4); NEUTROPHILS ABSOLUTE AUTO 13.78 K/mm3 (1.96-9.15); NEUTROPHILS PERCENT AUTO 92 % (41-73); Platelet Count 171 K/mm3 (150-400); RDW Coefficient Variation 14.8 % (11.7-14.2); RDW Standard Deviation 52.9 fL (35.1-46.3); Red Blood Cell Count 2.99 M/mm3 (3.80-5.20); White Blood Cell Count 14.98 K/mm3 (4.00-11.30)
[2024-07-18] MEDS ORDERED: Pantoprazole Sodium 40 MG Tab PO SCH (06:00)
[2024-07-18 06:25] LABS: Bun/Creatinine Ratio 30.2 (12.0-20.0); Calcium, Blood 8.4 mg/dL (8.5-10.1); Creatinine, Blood 1.06 mg/dL (0.40-1.00); Potassium, Blood 4.7 mmol/L (3.5-5.5)
[2024-07-18 07:47] VITALS: BP 133/51
[2024-07-18] MEDS ORDERED: Furosemide 40 MG Tab PO SCH ×2 (09:00→16:00)
[2024-07-18] MEDS ORDERED: Sertraline HCl 50 MG Tab PO SCH (09:00)
[2024-07-18] MEDS ORDERED: Enoxaparin 40 MG/0.4 ML SYR SC SCH (09:00)
[2024-07-18] MEDS ORDERED: Rosuvastatin Calcium 10 MG Tab PO SCH (09:00)
[2024-07-18 16:02] VITALS: BP 137/50
--- NOTE | 2024-07-18 18:04 | NUR ---
PT HAS HAD NOT ACUTE CHANGES. PT CONTINUES TO SOUND WET WITH HER RESPIRATIONS DR GARNICA HAS ADDED MEDICATION TO EMAR ADDRESSING THIS. PT CONTINUES TO NEED 2L O2 AND HAS BEEN MAINTIANING MID TO LOW 90s. PT IS ABLE TO USE CALL LIGHT AND MAKE HER NEEDS KNOWN. WILL CONTINUE TO MONITOR.
[2024-07-18 20:34] VITALS: BP 110/49
[2024-07-18] MEDS ORDERED: Montelukast Sodium 10 MG Tab PO SCH (21:00)
[2024-07-18] MEDS ORDERED: CO-ENZYME Q10 PO SCH (21:00)
--- NOTE | 2024-07-18 21:05 | NUR ---
PATIENT REPORTS NAUSEOUS AT THIS TIME. IV ZOFRAN GIVEN PER EMAR. ON TELEMETRY PACED 61 AND ON 2L O2 N/C. RESTING IN BED. WCTM.
[2024-07-19 00:17] VITALS: BP 134/104
[2024-07-19 04:19] VITALS: BP 110/65
--- NOTE | 2024-07-19 04:19 | NUR ---
SHIFT SUMMARY PATIENT NAUSEOUS X ONE AND IV ZOFRAN GIVEN WITH GOOD EFFECT. AXO X3 AND ONE ASSIST TO BSC. DENIES CHEST PAIN & SOB. VSS/AFEBRILE. PIV INTACT. TELE MONITOR PACED 61. ON 2L O2 N/C STATING 96% VIA PULSE OXIMETRY. SLEPT MOST OF SHIFT. CALL LIGHT IN REACH. BED IN LOWEST POSITION. WILL CONTINUE TO MONITOR UNTIL DAY SHIFT NURSE ASSUMES CARE.
[2024-07-19 06:22] LABS: BASOPHILS ABSOLUTE AUTO 0.03 K/mm3 (0.00-0.23); BASOPHILS PERCENT AUTO 0 % (0-2); EOSINOPHILS ABSOLUTE AUTO 0.09 K/mm3 (0.00-0.68); EOSINOPHILS PERCENT AUTO 1 % (0-6); Hematocrit 29.7 % (33.0-51.0); Hemoglobin 9.7 g/dL (11.5-16.0); IMMATURE GRAN ABSOLUTE AUTO 0.18 K/mm3 (0.00-0.10); IMMATURE GRAN PERCENT AUTO 1 % (0-1); LYMPHOCYTES ABSOLUTE AUTO 0.55 K/mm3 (0.84-5.20); LYMPHOCYTES PERCENT AUTO 3 % (21-46); MONOCYTES ABSOLUTE AUTO 0.71 K/mm3 (0.16-1.47); MONOCYTES PERCENT AUTO 4 % (4-13); Mean Corpuscular HGB Conc 32.7 g/dL (31.5-36.5); Mean Corpuscular Volume 95 fL (80-100); Mean Platelet Volume 12.6 fL (9.1-12.4); NEUTROPHILS PERCENT AUTO 91 % (41-73); Platelet Count 191 K/mm3 (150-400); RDW Coefficient Variation 14.8 % (11.7-14.2); RDW Standard Deviation 51.4 fL (35.1-46.3); Red Blood Cell Count 3.13 M/mm3 (3.80-5.20); White Blood Cell Count 18.06 K/mm3 (4.00-11.30)
[2024-07-19 06:49] LABS: Bun/Creatinine Ratio 36.2 (12.0-20.0); Calcium, Blood 8.8 mg/dL (8.5-10.1); Creatinine, Blood 1.41 mg/dL (0.40-1.00); Potassium, Blood 5.6 mmol/L (3.5-5.5)
[2024-07-19] MEDS ORDERED: ALPRAZolam 0.5 MG Tab PO ONE (07:25)
[2024-07-19 07:30] VITALS: BP 127/44
[2024-07-19] MEDS ORDERED: Losartan Potassium 25 MG Tab PO SCH (09:00)
[2024-07-19 11:39] VITALS: BP 132/47
[2024-07-19 13:32] LABS: Bun/Creatinine Ratio 39.7 (12.0-20.0); Creatinine, Blood 1.46 mg/dL (0.40-1.00); Potassium, Blood 4.8 mmol/L (3.5-5.5)
[2024-07-19 15:04] VITALS: BP 108/61
--- NOTE | 2024-07-19 16:44 | NUR ---
MET WITH PT AND SON VIOLETA AT BEDSIDE. WE DISCUSSED GOALS OF CARE, AND AT THIS TIME, PT IS NOT WILLING TO MAKE ANY CHANGES TO CODE STATUS. SHE STATES SHE WANTS TO TRIAL FOR "2 WEEKS" IF SHE STOPS BREATHING OR HER HEART STOPS. SHE STATES SHE WOULD WANT FULL TREATMENT INCLUDING BOTH INTUBATION AND CHEST COMPRESSIONS. I DID GIVE HER SON A BOOKLET, "HARD CHOICES FOR LOVING PEOPLE." PLAN TO DISUSS THIS FURTHER WITH HIM AND POSSIBLY PATIENT AGAIN TOMORROW.
[2024-07-19 17:45] LABS: International Normalized Ratio 1.07; Prothrombin Time Results 11.4 Sec (9.7-11.5)
[2024-07-19] MEDS ORDERED: Heparin Sodium,Porcine/0.5 NS 500 ML IV SCH (17:50)
[2024-07-19] MEDS ORDERED: Furosemide 10 MG / ML 2ML Vial IV SCH (18:00)
--- NOTE | 2024-07-19 19:09 | NUR ---
SHIFT SUMMARY PATIENT A/OX3-4, ABLE TO MAKE NEEDS KNOWN. QUIET AND WITHDRAWN BUT COOPERATIVE AND PLEASANT WITH STAFF. PATIENT COMPLAINING OF ANXIETY THIS AM DURING SHIFT REPORT, NOTIFIED AND XANAX ADMINISTERED PER JUL.PALLIATIVE CARE CONSULTED THIS AFTERNOON, REMAINS FULL CODE. SON CAME TO VISIT THIS EVENING. RESPIRATORY THERAPY CALLED TWICE THIS SHIFT FOR BREATHING TREATMENTS, PATIENT COMPLAINING OF SOB AND DIFFICULTY BREATHING. MOIST LUNG SOUNDS WITH EXPIRATORY WHEEZING THROUGHOUT. CHEST X RAY OBTAINED TODAY. PLAN TO HAVE V/Q SCAN. CONTINUES ON 2 LPM OXYGEN VIA NASAL CANNULA. HEPARIN GTT STARTED THIS EVENING PER JUL. REPORT GIVEN TO SOFTWARE APPLICATIONS DEVELOPER NURSE, NO OTHER CONCERNS AT THIS TIME.
[2024-07-19 20:02] VITALS: BP 126/53
[2024-07-19] MEDS ORDERED: MethylPREDNISolone Sod Succ 125 MG Vial IV SCH (21:00)
[2024-07-20] VITALS (7 sets, daily range): BP systolic 101–123; BP diastolic 48–82
[2024-07-20 01:36] LABS: BASOPHILS ABSOLUTE AUTO 0.01 K/mm3 (0.00-0.23); BASOPHILS PERCENT AUTO 0 % (0-2); EOSINOPHILS PERCENT AUTO 0 % (0-6); Hematocrit 27.1 % (33.0-51.0); Hemoglobin 8.8 g/dL (11.5-16.0); IMMATURE GRAN ABSOLUTE AUTO 0.12 K/mm3 (0.00-0.10); IMMATURE GRAN PERCENT AUTO 1 % (0-1); LYMPHOCYTES PERCENT AUTO 3 % (21-46); MONOCYTES ABSOLUTE AUTO 0.54 K/mm3 (0.16-1.47); MONOCYTES PERCENT AUTO 4 % (4-13); Mean Corpuscular HGB 30.3 pg (26.0-34.0); Mean Corpuscular HGB Conc 32.5 g/dL (31.5-36.5); Mean Corpuscular Volume 93 fL (80-100); Mean Platelet Volume 12.4 fL (9.1-12.4); NEUTROPHILS ABSOLUTE AUTO 14.26 K/mm3 (1.96-9.15); NEUTROPHILS PERCENT AUTO 92 % (41-73); Platelet Count 186 K/mm3 (150-400); RDW Coefficient Variation 14.8 % (11.7-14.2); RDW Standard Deviation 51.5 fL (35.1-46.3); White Blood Cell Count 15.43 K/mm3 (4.00-11.30)
[2024-07-20 01:59] LABS: Albumin/Globulin Ratio 0.7 (0.8-1.8); Bilirubin, Total 0.5 mg/dL (0.1-1.0); Bun/Creatinine Ratio 44.2 (12.0-20.0); Calcium, Blood 8.4 mg/dL (8.5-10.1); Creatinine, Blood 1.2 mg/dL (0.40-1.00); Globulin, Blood 4.6 g/dL (2.2-4.0); Potassium, Blood 4.2 mmol/L (3.5-5.5); Total Protein, Blood 7.6 g/dL (6.4-8.2)
[2024-07-20] MEDS ORDERED: Dose Adjust by Pharmacy XX STA ×3 (02:34→18:55)
--- NOTE | 2024-07-20 04:18 | NUR ---
PT A&O X4,, VS WNL, OUTPUT WNL, PO INTAKE BELOW AVERAGE. PT L/S DIMINISHED, AND WITH SOME RHONCHI, PT WITH BIPAP ON FOR MOST OF THIS SHIFT. UP WITH ASSIST TO BSC. REMAINS ON HEPARIN DRIP WHICH WAS ADJUSTED AT APPROXIMATELY 0200, NEXT APTT AT 0830. NEW IV PLACED D/T ABX'S AND IVP STEROIDS. PT SLEPT WELL BETWEEN CARES. AWAITING VQ SCAN,
[2024-07-20] MEDS ORDERED: Furosemide 40 MG Tab PO SCH (09:00)
--- NOTE | 2024-07-20 11:31 | NUR ---
HEPARIN INCREASED TO 22 UNITS/KG/HR AND 19.4 ML
--- NOTE | 2024-07-20 18:56 | NUR ---
SHIFT SUMMARY PATIENT A/OX4, ABLE TO MAKE NEEDS KNOWN. PLEASANT AND COOPERATIVE WITH CARE. ABDOMINAL ULTRASOUND AND V/Q SCAN OBTAINED THIS SHIFT. PROTECTIVE MEPILEX CHANGED TO SACRUM. HEPARIN GTT DOSE ADJUSTED PER JUL. SON, VIOLETA, VISITED MOST OF SHIFT TODAY. PATIENT CONTINUES WITH 2 LPM OXYGEN USE. APPETITE HAS INCREASED. TESSALON ANIRUDH AND ROBITUSSIN ADMINISTERED PER JUL. REPORT GIVEN TO MAIL WEIGHER NURSE. NO OTHER CONCERNS AT THIS TIME.
[2024-07-21 03:09] LABS: Bun/Creatinine Ratio 49.1 (12.0-20.0); Calcium, Blood 8.6 mg/dL (8.5-10.1); Creatinine, Blood 0.84 mg/dL (0.40-1.00)
[2024-07-21 03:27] LABS: BASOPHILS ABSOLUTE AUTO 0.02 K/mm3 (0.00-0.23); BASOPHILS PERCENT AUTO 0 % (0-2); EOSINOPHILS PERCENT AUTO 0 % (0-6); Hematocrit 26.3 % (33.0-51.0); Hemoglobin 8.5 g/dL (11.5-16.0); IMMATURE GRAN ABSOLUTE AUTO 0.17 K/mm3 (0.00-0.10); IMMATURE GRAN PERCENT AUTO 1 % (0-1); LYMPHOCYTES ABSOLUTE AUTO 0.41 K/mm3 (0.84-5.20); LYMPHOCYTES PERCENT AUTO 3 % (21-46); MONOCYTES ABSOLUTE AUTO 0.59 K/mm3 (0.16-1.47); MONOCYTES PERCENT AUTO 4 % (4-13); Mean Corpuscular HGB 30.8 pg (26.0-34.0); Mean Corpuscular HGB Conc 32.3 g/dL (31.5-36.5); Mean Corpuscular Volume 95 fL (80-100); Mean Platelet Volume 12.2 fL (9.1-12.4); NEUTROPHILS ABSOLUTE AUTO 14.61 K/mm3 (1.96-9.15); NEUTROPHILS PERCENT AUTO 93 % (41-73); Platelet Count 192 K/mm3 (150-400); RDW Coefficient Variation 14.9 % (11.7-14.2); RDW Standard Deviation 51.4 fL (35.1-46.3); Red Blood Cell Count 2.76 M/mm3 (3.80-5.20)
[2024-07-21] MEDS ORDERED: Clarify Drug Order XX ONE (03:50)
[2024-07-21 03:51] VITALS: BP 132/53
--- NOTE | 2024-07-21 04:22 | NUR ---
PT A&O X4, VS WNL, UP TO BSC WITH DECREASED UOP THIS SHIFT. PT WORE O2 UNTIL APPROXIMATELY 2300 WHEN RT PLACED HER ON BIPAP, SHE WORE THIS FOR REMAINDER OF SHIFT. PT WITH DECREASED L/S T/O. DENIES PAIN. REMAINS UNSTEADY WHEN UP, BUT USES CALL SYSTEM APPROPRIATELY. REMAINS ON HEPARIN DRIP WITH ONE CHANGE IN RATE EARLY IN SHIFT, RECHECK AT 0130 DID NOT CHANGE RATE. WILL CONTINUE TO MONITOR.
[2024-07-21 08:29] VITALS: BP 120/74
--- NOTE | 2024-07-21 08:37 | NUR ---
STOPPED HEPARIN GTT FOR LAB DRAW CALLED PHARMACY TO NOTIFY HEPARIN GTT HAS BEEN STOPPED PATIENT IS A DIFFICULT LAB DRAW AND NEEDING TO OBTAIN SPECIMEN FROM ARM WHERE HAPRIN GTT IS RUNNING. WILL CALL TO NOTIFY PHARMACY WHEN GTT IS RESTARTED.
--- NOTE | 2024-07-21 08:47 | NUR ---
HEPARIN GTT RESTARTED. PHARMACY CALLED AND NOTIFIED.
[2024-07-21] MEDS ORDERED: Metoprolol Tartrate 25 MG Tab PO SCH (09:00)
[2024-07-21] MEDS ORDERED: Dose Adjust by Pharmacy XX STA (09:40)
[2024-07-21] MEDS ORDERED: ALPRAZolam 0.5 MG Tab PO ONE (10:05)
[2024-07-21] MEDS ORDERED: Prochlorperazine Edisylate 10 mg Vial IV PRN (11:15)
[2024-07-21] MEDS ORDERED: Azithromycin 500 MG in NS 250 ML IV SCH (11:30)
[2024-07-21] MEDS ORDERED: Enoxaparin 30 MG/0.3 ML SYR SC SCH (12:00)
[2024-07-21] MEDS ORDERED: CefTRIAXone Sodium 1,000 MG in NS 100 ML IV SCH (13:00)
--- NOTE | 2024-07-21 14:14 | NUR ---
TELEMETRY CALLED TO NOTIFY PATIENT WITH HEART RATE IN 170s. MD NOTIFIED AND ONE TIME ORDER OF LOPRESSOR ORDERED. WILL COTNINUE TO MONITOR.
[2024-07-21] MEDS ORDERED: Metoprolol Tartrate 1 MG/ML 5 ML VIAL IV ONE (14:15)
[2024-07-21 14:17] VITALS: BP 106/40
[2024-07-21] MEDS ORDERED: Acetaminophen 325 MG TABLET PO PRN (14:35)
[2024-07-21 17:28] VITALS: BP 106/46
--- NOTE | 2024-07-21 19:27 | NUR ---
SHIFT SUMMARY PATIENT A/OX4, ABLE TO MAKE NEEDS KNOWN. PLEASANT AND COOPERATIVE WITH CARE. PATIENT ANXIOUS THIS MORNING, NOTIFIED AND ONE TIME ORDER OF XANAX ADMINISTERED PER JUL. PATIENT COMPLAINING OF SHOULDER PAIN, TYLENOL ADMINISTERED PER JUL. TELEMETRY IN PLACE, PATIENT CONVERTED TO AFIB WITH RATE IN 170s. MD NOTIFIED AND IV LOPRESSOR ADMINISTERED PER JUL. PATIENT THEN CONVERTED TO AV PACED WYTHYM IN 90s. HEPARIN GTT STOPPED THIS SHIFT. PATIENT CONTINUES WITH 1 LPM OXYGEN VIA NASAL CANNULA. CONTINUES WITH MINIMAL APPETITE. PATIENT INCREASINGLY LETHARGIC THIS EVENING, REFUSING MEALS AND REQUESTING TO SLEEP. CT OF CHEST PNA, ANTIBIOTICS ADMINISTERED PER JUL. NO OTHER CONCERNS AT THIS TIME. REPORT GIVEN TO JET SKI MECHANIC RN.
[2024-07-21 20:00] VITALS: BP 109/52
[2024-07-21 23:58] VITALS: BP 128/54
[2024-07-22 03:31] VITALS: BP 138/59
--- NOTE | 2024-07-22 03:51 | NUR ---
PT A&O X4. VS WNL, REMAINS ON O2 WITH SATS IN HIGH 90'S. PT WORE BIPAP FOR APPROXIMATELY 2 HRS, THEN WOULDN'T LEAVE MASK ON. PT WITH SOME AIR EXCHANGE, BUT L/S STILL SIGNIFICANTLY DIMINSHED. TELE VPACED IN 80'S. C/O SHOULDER PAIN, KPAD IN PLACE, AND TYLENOL ADMINISTERED X1. UP WITH ASSIST D/T UNSTEADY GAIT, AND BECOMES DYSPNIC WITH ACTIVITY. LOPRESSOR INCRREASED TODAY D/T ELEVATED B/P, HELD AT HS D/T BELOW PARAMETERS. WILL CONTINUE TO MONITOR.
[2024-07-22 06:09] LABS: BASOPHILS ABSOLUTE AUTO 0.04 K/mm3 (0.00-0.23); BASOPHILS PERCENT AUTO 0 % (0-2); EOSINOPHILS PERCENT AUTO 0 % (0-6); Hematocrit 27.4 % (33.0-51.0); Hemoglobin 8.7 g/dL (11.5-16.0); IMMATURE GRAN ABSOLUTE AUTO 0.46 K/mm3 (0.00-0.10); IMMATURE GRAN PERCENT AUTO 3 % (0-1); LYMPHOCYTES ABSOLUTE AUTO 0.79 K/mm3 (0.84-5.20); LYMPHOCYTES PERCENT AUTO 5 % (21-46); MONOCYTES ABSOLUTE AUTO 0.64 K/mm3 (0.16-1.47); MONOCYTES PERCENT AUTO 4 % (4-13); Mean Corpuscular HGB 30.6 pg (26.0-34.0); Mean Corpuscular HGB Conc 31.8 g/dL (31.5-36.5); Mean Corpuscular Volume 97 fL (80-100); Mean Platelet Volume 12.2 fL (9.1-12.4); NEUTROPHILS PERCENT AUTO 88 % (41-73); NRBC ABSOLUTE 0.03 K/mm3 (0.00-0.02); NRBC Auto 0.2 /100 WBC (0.0-0.2); Platelet Count 213 K/mm3 (150-400); RDW Standard Deviation 52.6 fL (35.1-46.3); Red Blood Cell Count 2.84 M/mm3 (3.80-5.20); White Blood Cell Count 16.23 K/mm3 (4.00-11.30)
[2024-07-22 07:05] LABS: Bun/Creatinine Ratio 46.1 (12.0-20.0); Calcium, Blood 8.8 mg/dL (8.5-10.1); Creatinine, Blood 0.98 mg/dL (0.40-1.00); Potassium, Blood 4.3 mmol/L (3.5-5.5)
[2024-07-22 08:50] VITALS: BP 120/52
[2024-07-22] MEDS ORDERED: PredniSONE 20 MG Tab PO SCH (09:00)
[2024-07-22 09:28] VITALS: BP 120/45
[2024-07-22] MEDS ORDERED: HYDROcodone 5-APAP 325 TAB PO PRN (12:00)
--- NOTE | 2024-07-22 13:49 | NUR ---
CALLED DR GARNICA- PT SOUNDS LIKE SHE MAY BE ASPIRATING WITH DRINKS AND MEDS. WHEN SHE TOOK MEDICATION SHE TOSSED HER HEAD BACK AND SEEMED TO GURGLE AND CHOKE A LITTLE, LUNG SOUNDS AND COUGH ALREADY WET UNABLE TO DETERMINE ASPIRATION. PT WAS UNABLE TO FOLLOW INSTRUCTIONS TO TUCK HER CHIN SHE SWALLOWED. SPOKE TO SHE IS AWARE AND IS PLACING AN ORDER FOR REPEAT CHEST XR AND ST EVAL.
[2024-07-22] MEDS ORDERED: Aspirin 81 MG Chew PO SCH (16:00)
[2024-07-22 17:30] VITALS: BP 131/84
--- NOTE | 2024-07-22 17:58 | NUR ---
SHIFT SUMMARY- PT ALERT AND ORIENTED THIS MORNIG WITH NO C/O PAIN. SHE WAS ASISTED UP TO THE RECLINER BEFORE BREAKFAST, AFTER BREAKFAST SHE HAD A C/O NOT FEELING WELL. SHE C/O PAIN IN HER SHOULDERS AND NECK. MEDICATED WITH TYLENOL WITH LITTLE RELIEF. SPOKE TO DR GARNICA AND RECIEVED ORDER FOR NORCO. PT MEDICATED WITH NORCO. ATTEMPTED TO INSTRUCT HER ON PROPER SWALLOWING. CALLED DR WITH CONCERN FOR POSSIBLE ASPIRATION. SWALLOW EVAL, CHEST XR, TROPONIN AND EKG COMPLETED. AFTER THE XR PT RETURNED TO THE ROOM STILL VERY COMFORTABLE FROM THE NORCO DOSE EARLIER. NO S&S OF DISTRESS ON RETURN TO THE ROOM, TELE REPLACED. MANUFACTURERS REPRESENTATIVE WENT IN TO GET A SET OF VITALS AND THE PT SAT UP IN A PANIC AND BEGAN EXPRESSING A SENCE OF IMPENDING DOM. SHE WAS PALE AND DIAPHORETIC. SHE ASKED "I AM DYING RIGHT? AM I DYING?" CALED DR GARNICA AND SHE CAME TO THE BEDSIDE. PT TRANSFER ORDER TO PCU FOR WORSENING PNEUMONIA AD ELEVATED TROPONINS. AWAITING BED ASSIGNENT.
[2024-07-22] MEDS ORDERED: Atorvastatin 10 MG Tab PO SCH (18:00)
[2024-07-22] MEDS ORDERED: MethylPREDNISolone Sod Succ 125 MG Vial IV SCH (18:00)
[2024-07-22] MEDS ORDERED: Piperacillin/Tazobactam Sod 3.375 GM in NS 100 ML IV SCH (18:00)
[2024-07-22] MEDS ORDERED: FentaNYL Citrate 50 MCG/ML 2 ML Injection IV PRN (18:00)
[2024-07-22 18:26] LABS: Base Excess Venous 5.5 mmol/L; Bicarbonate Venous 27.5 mmol/L (24.0-30.0); PCO2 Venous 69.6 mmHg (38-42)
[2024-07-22 18:27] LABS: pH Blood Venous 7.27 (7.34-7.37)
[2024-07-22] MEDS ORDERED: Furosemide 10 MG/ML 4ML Vial IV SCH (18:30)
[2024-07-22 19:07] VITALS: BP 134/54
--- NOTE | 2024-07-22 20:00 | NUR ---
SHIFT SUMMARY- PT TRANSFERED TO PCU 10 AT SHIFT CHANGE. GAVE REPORT TO NIGHT RN IN PCU. PT PLACED ON BIPAP BY RT. RT AND NIGHT RN AT THE BEDSIDE AFTER REPORT. CALLED PT SON TO NOTIFY HIM OF THE TRANSFER, LEFT A VOICEMAIL ASKING FOR A CALL BACK.
[2024-07-22] MEDS ORDERED: HYDROcodone 5-APAP 325 TAB PO SCH (21:00)
[2024-07-22 23:53] VITALS: BP 155/65
[2024-07-23 03:14] VITALS: BP 156/73
--- NOTE | 2024-07-23 04:35 | NUR ---
SHIFT SUMMARY PT REMAINS A&OX4. AWAKENS WITH VERBAL STIMULI. VSS ON 2-3L NC >92%. USING CPAP ALL NIGHT WITH NO ISSUES. PT REMAINS ON TELE PACED IN 70s. PT VERY WEAK AND LETHARGIC AT TIMES. USING BSC WITH X1A PIVOT TO COMMODE. ADEQUATE OUTPUT SEE CHART FOR I/Os. PT HAD NO C/O PAIN THROUGHOUT NIGHT. ABX AND STEROIDS GIVEN PER JUL. PT REMAINS NPO UNTIL ST EVAL IN AM. NO FURTHER QUESTIONS OR CONCERNS AT THIS TIME. WILL CONTINUE WITH PLAN OF CARE.
[2024-07-23 05:03] LABS: BASOPHILS ABSOLUTE AUTO 0.05 K/mm3 (0.00-0.23); BASOPHILS PERCENT AUTO 0 % (0-2); EOSINOPHILS PERCENT AUTO 0 % (0-6); Hemoglobin 9.1 g/dL (11.5-16.0); IMMATURE GRAN ABSOLUTE AUTO 0.81 K/mm3 (0.00-0.10); IMMATURE GRAN PERCENT AUTO 5 % (0-1); LYMPHOCYTES ABSOLUTE AUTO 0.84 K/mm3 (0.84-5.20); LYMPHOCYTES PERCENT AUTO 5 % (21-46); MONOCYTES ABSOLUTE AUTO 0.35 K/mm3 (0.16-1.47); MONOCYTES PERCENT AUTO 2 % (4-13); Mean Corpuscular HGB Conc 32.5 g/dL (31.5-36.5); Mean Corpuscular Volume 95 fL (80-100); Mean Platelet Volume 11.6 fL (9.1-12.4); NEUTROPHILS ABSOLUTE AUTO 14.77 K/mm3 (1.96-9.15); NEUTROPHILS PERCENT AUTO 88 % (41-73); NRBC ABSOLUTE 0.04 K/mm3 (0.00-0.02); NRBC Auto 0.2 /100 WBC (0.0-0.2); Platelet Count 227 K/mm3 (150-400); RDW Coefficient Variation 15.1 % (11.7-14.2); RDW Standard Deviation 52.1 fL (35.1-46.3); Red Blood Cell Count 2.94 M/mm3 (3.80-5.20); White Blood Cell Count 16.82 K/mm3 (4.00-11.30)
[2024-07-23 05:51] LABS: Calcium, Blood 8.8 mg/dL (8.5-10.1); Creatinine, Blood 1.16 mg/dL (0.40-1.00)
[2024-07-23 08:06] VITALS: BP 136/66
[2024-07-23] MEDS ORDERED: Enoxaparin 30 MG/0.3 ML SYR SC SCH (09:00)
[2024-07-23] MEDS ORDERED: Pantoprazole Sodium 40 MG Injection IV SCH (09:00)
[2024-07-23 12:53] VITALS: BP 132/49
[2024-07-23 15:13] VITALS: BP 127/41
[2024-07-23] MEDS ORDERED: Piperacillin/Tazobactam Sod 3.375 GM in NS 100 ML IV SCH (16:00)
--- NOTE | 2024-07-23 17:21 | NUR ---
PALLIATIVE CARE NOTE: MET WITH KALANI AND HER SON VIOLETA IN PT ROOM. PT SITTING IN CHAIR. APPEARS TO BE COMFORTABLE AND IN NO RESPIRATORY DISTRESS. DENIES PAIN, NAUSEA, CONSTIPATION, ANXIETY. REPORTS DEPRESSED OVER HER CURRENT ILLNESS. DISCUSSED CODE STATUS AND RISKS TO CPR SUCH RIB FRACTURES DUE TO HER FRAGILE STATE. PT STATES SHE HAS ADVANCE DIRECTIVE AT HOME. SHE CONTINUES TO WANT TO BE A FULL CODE. SHE WOULD WANT CPR AND BE ON A VENTILATOR NO LONGER THAN TWO WEEKS. ENCOURAGED SON VOILETA TO BRING COPY OF ADVANCE DIRECTIVE TO BE PLACED ON CHART. PRIMARY RN UPDATED ON OUR CONVERSATION.
--- NOTE | 2024-07-23 17:28 | NUR ---
SHIFT SUMMARY PT HAS BEEN WITHDRAWN DURING SHIFT, SHE IS ALERT AND ORIENTED X 4, SHE IS CIRCLE. BP AND HR STABLE, SPO2 MAINTAINED >95% VIA 1L NC. AT TIMES, SHE REPORTS FEELING SOB AT REST AND BECOMES DYSPNEIC W/ EXERTION. SHE HAS AN OCCASSIONAL WET COUGH. SHE HAS BEEN A 1 PERSON ASSIST TO MANAGE LINES TO BEDSIDE COMMODE WELL UP TO CHAIR. SPEECH THERAPY EVALUATED PT TODAY. SHE HAS DENIED FEELINGS OF NAUSEA/VOMITTING BUT HAS HAD POOR PO INTAKE. HER SON HAS BEEN AT BEDSIDE DURING SHIFT. SHE HAS DENIED FEELINGS OF CHEST PAIN/PRESSURE DURING SHIFT. CALL LIGHT IS W/IN REACH.
[2024-07-23] MEDS ORDERED: ALPRAZolam 0.25 MG Tab PO PRN (18:00)
[2024-07-23 19:39] VITALS: BP 133/47
[2024-07-23 23:17] VITALS: BP 129/53
[2024-07-24 04:04] VITALS: BP 151/61
[2024-07-24 04:32] LABS: BASOPHILS ABSOLUTE AUTO 0.04 K/mm3 (0.00-0.23); BASOPHILS PERCENT AUTO 0 % (0-2); EOSINOPHILS PERCENT AUTO 0 % (0-6); Hemoglobin 9.1 g/dL (11.5-16.0); IMMATURE GRAN ABSOLUTE AUTO 0.57 K/mm3 (0.00-0.10); IMMATURE GRAN PERCENT AUTO 4 % (0-1); LYMPHOCYTES ABSOLUTE AUTO 0.64 K/mm3 (0.84-5.20); LYMPHOCYTES PERCENT AUTO 4 % (21-46); MONOCYTES ABSOLUTE AUTO 0.56 K/mm3 (0.16-1.47); MONOCYTES PERCENT AUTO 4 % (4-13); Mean Corpuscular HGB 29.8 pg (26.0-34.0); Mean Corpuscular HGB Conc 31.4 g/dL (31.5-36.5); Mean Corpuscular Volume 95 fL (80-100); Mean Platelet Volume 11.7 fL (9.1-12.4); NEUTROPHILS ABSOLUTE AUTO 12.83 K/mm3 (1.96-9.15); NEUTROPHILS PERCENT AUTO 88 % (41-73); NRBC ABSOLUTE 0.05 K/mm3 (0.00-0.02); NRBC Auto 0.3 /100 WBC (0.0-0.2); Platelet Count 229 K/mm3 (150-400); RDW Coefficient Variation 15.2 % (11.7-14.2); RDW Standard Deviation 52.7 fL (35.1-46.3); Red Blood Cell Count 3.05 M/mm3 (3.80-5.20); White Blood Cell Count 14.64 K/mm3 (4.00-11.30)
[2024-07-24 04:54] LABS: Bun/Creatinine Ratio 49.1 (12.0-20.0); Calcium, Blood 8.8 mg/dL (8.5-10.1); Creatinine, Blood 0.92 mg/dL (0.40-1.00); Potassium, Blood 3.3 mmol/L (3.5-5.5)
[2024-07-24] MEDS ORDERED: Potassium Chloride 40 MEQ in NS 250 ML IV ONE (05:10)
--- NOTE | 2024-07-24 05:16 | NUR ---
SHIFT SUMMARY NO ACUTE CHANGES OVERNIGHT. VSS ON 1-3L NC. OCCASIONALY THROUGHOUT NIGHT PT WOULD FEEL SOB WITH GOOD SATS >97%. WOULD INCREASE O2 AND PT WOULD FEEL COMFORTABLE, TITRATED BACK DOWN TO 1L >96%. PT FREQUENTLY UP TO BSC WITH ONE ASSIST. GOOD OUTPUT. CONTINUING ABX, DIURISING, AND SOLUMEDROL. PT COMFORTABLE IN RECLINDER THROUGHOUT NIGHT. NO FURTHER QUESTIONS OR CONCERNS AT THIS TIME. WILL CONTINUE WITH CARE.
[2024-07-24 07:54] VITALS: BP 125/51
[2024-07-24 12:00] VITALS: BP 143/58
[2024-07-24 16:00] VITALS: BP 157/62
--- NOTE | 2024-07-24 17:17 | NUR ---
UPDATED POLST PER PT REQUEST. PT ELECTS CPR WITH FULL TREATMENT. INTUBATION "2 WEEKS ONLY. NO MORE". PT CLARIFIED TWO WEEKS IS 14 DAYS. IF NEEDED SHE WOULD LIKE ARTIFICIAL NUTRITION (NG TUBE OKAY). NO SURGICALLY PLACED FEEDING TUBES. PT'S SON - VIOLETA PRESENT FOR CONVERSATION. KALANI VERBALLY APPOINTS VIOLETA MAREKBETH HER DECESION MAKER WHEN SHE IS NOT ABLE TO SPEAK FOR HERSELF. ADVANCE DIRECTIVE PROVIDED TO PT AND SON FOR REVIEW. PC IS AVAILABLE SHOULD PT OR SON HAVE QUESTIONS ON COMPLETING AD. PROVIDER NOTIFIED OF NEW POLST REQUEST. FORM AT PT ROOM. PROVIDER TO SIGN POLST DURING ROUNDS TOMORROW 07/25/24.
--- NOTE | 2024-07-24 17:23 | NUR ---
PT SUMMARY; NO ACUTE CHANGE FOR THE SHIFT. PT REMAINED ON 2L OF O2 VIA NASAL CANNULA SATS KPET ABOVE 90%, PT STILL GETS SOB WITH EXERTION, SBP 130-150'S, HRR VPACED AT 60-80'S, AFEBRILE. SPEECH THERAPIST WORK WITH THE PT TODAY TRANSITIONED DIET TO SOFT BITE SIZE TOLERATED WELL, STILL HAS DECREASED APPETITE. PT HAS BEEN UP IN THE RECLINER MOST OF THE SHIFT, RECEIVED A BED ABTH TODAY, USES BS FOR TOILETING PT CONTINENT OF BOTH BOWEL AND BLADDER. PT DENIES ANY PAIN BUT HAS SOME DISCOMFORT AND ANXIETY XANAX GIVEN BY NOC RN AT THE BEGINNING OF THE SHIFT AND WAS HELPFUL, RECEIVED ANOTHER DOSE THIS AFTERNOON. PALLIATIVE CARE CAME BY AND REVISED POLST FORM, PT REMAINED FULL CODE AT THIS TIME. PT CONTINUES TO DIURESE, ON IV ABX, STEROIDS. PT PARTICIPATED WITH PT/OT. NO OTHER ISSUES ENCOUNTERED FOR THE SHIFT, CALLS APPROPRIATELY. WILL REPORT TO ONCOMING SHIFT
[2024-07-24 20:18] VITALS: BP 154/68
[2024-07-24] MEDS ORDERED: MethylPREDNISolone Sod Succ 125 MG Vial IV SCH (21:00)
[2024-07-24 23:12] VITALS: BP 156/84
[2024-07-25 04:29] VITALS: BP 150/68
[2024-07-25 04:36] LABS: BASOPHILS ABSOLUTE AUTO 0.03 K/mm3 (0.00-0.23); BASOPHILS PERCENT AUTO 0 % (0-2); EOSINOPHILS PERCENT AUTO 0 % (0-6); Hematocrit 28.9 % (33.0-51.0); Hemoglobin 9.3 g/dL (11.5-16.0); IMMATURE GRAN ABSOLUTE AUTO 0.42 K/mm3 (0.00-0.10); IMMATURE GRAN PERCENT AUTO 2 % (0-1); LYMPHOCYTES ABSOLUTE AUTO 0.65 K/mm3 (0.84-5.20); LYMPHOCYTES PERCENT AUTO 3 % (21-46); MONOCYTES ABSOLUTE AUTO 0.94 K/mm3 (0.16-1.47); MONOCYTES PERCENT AUTO 4 % (4-13); Mean Corpuscular HGB 30.7 pg (26.0-34.0); Mean Corpuscular HGB Conc 32.2 g/dL (31.5-36.5); Mean Corpuscular Volume 95 fL (80-100); Mean Platelet Volume 11.6 fL (9.1-12.4); NEUTROPHILS ABSOLUTE AUTO 19.77 K/mm3 (1.96-9.15); NEUTROPHILS PERCENT AUTO 91 % (41-73); NRBC ABSOLUTE 0.02 K/mm3 (0.00-0.02); NRBC Auto 0.1 /100 WBC (0.0-0.2); Platelet Count 232 K/mm3 (150-400); RDW Coefficient Variation 15.3 % (11.7-14.2); RDW Standard Deviation 52.8 fL (35.1-46.3); Red Blood Cell Count 3.03 M/mm3 (3.80-5.20); White Blood Cell Count 21.81 K/mm3 (4.00-11.30)
--- NOTE | 2024-07-25 04:46 | NUR ---
SHIFT SUMMARY NO ACUTE CHANGES OVERNIGHT. VSS ON 1-2L VIA NC >96%. PT COMFORTABLE UP IN CHAIR THROUGHOUT NIGHT. USING BSC WITH 1A STAND PIVOT. SEE CHART FOR I/Os. ENCOURAGING ENSURE INTAKE THROUGHOUT NIGHT. PT WAS ABLE TO SLEEP MORE THAN PREVIOUS NIGHTS AND SEEMS MORE RELAXED WITH AID OF XANAX AND MELATONIN. NO C/O PAIN. NO FURTHER QUESTIONS OR CONCERNS AT THIS TIME. WILL CONTINUE WITH PLAN OF CARE. CALL DELEON WITHIN REACH.
[2024-07-25 05:02] LABS: Albumin, Blood 3.1 g/dL (3.4-5.0); Albumin/Globulin Ratio 0.7 (0.8-1.8); Bilirubin, Total 0.6 mg/dL (0.1-1.0); Bun/Creatinine Ratio 45.8 (12.0-20.0); Calcium, Blood 9.7 mg/dL (8.5-10.1); Creatinine, Blood 0.9 mg/dL (0.40-1.00); Globulin, Blood 4.3 g/dL (2.2-4.0); Magnesium, Blood 2.3 mg/dL (1.6-2.4); Phosphorus, Blood 3.5 mg/dL (2.5-4.9); Potassium, Blood 3.6 mmol/L (3.5-5.5); Total Protein, Blood 7.4 g/dL (6.4-8.2)
[2024-07-25 07:49] VITALS: BP 135/47
--- NOTE | 2024-07-25 15:24 | NUR ---
PALLIATIVE CARE NOTE: MET WITH PT IN HER ROOM. SON VIOLETA IS PRESENT. PT AWAKENS WITH VERBAL STIMULI. PT ON OXYGEN, RR E/U. NO APPARENT DISTRESS. SHE IS SMILING WITH INTERACTION. PER PT SOB IS CURRENTLY MANAGED. SHE HAS NO CONCERNS. THE PLAN PER PT IS TO GO TO SNF THEN HOME WITH OXYGEN. WHILE KALANI IS TALKING WHITE COATING ON TONGUE IS VERY NOTICABLE. IT APPEARS TO BE THRUSH ON CLOSER INSPECTION. WILL CALL DENTAL HYGIENIST TO GIVE 2ND OPINION. DENTAL CONSULT PLACED.
--- NOTE | 2024-07-25 15:40 | NUR ---
PT TRANSFERRED TO MEDICAL FLOOR AT AROUND 1400. NO ACUTE CHANGES. VITALS HAS BEEN STABLE. PT HAS BEEN UP IN THE RECLINER T/O SHIFT, ABLE TO WORK WITH OCCUPATIONAL THERAPIST. PT PLAN TO GO TO SNF. SON CAME IN RIGHT WHEN PT IS GETTING TRANSFERRED. ALL BELONGINGS SENT WITH THE PT, PT ACCOMPANIE VIA WHEELCHAIR
[2024-07-25] MEDS ORDERED: Nystatin 100,000 Unit/ML Susp 5 ML UDC PO SCH ×2 (17:00→18:00)
[2024-07-25 17:25] VITALS: BP 135/44
[2024-07-25] MEDS ORDERED: Furosemide 40 MG Tab PO SCH (18:00)
--- NOTE | 2024-07-25 18:33 | NUR ---
SHIFT SUMMARY/TRANSFER NOTE PATIENT TRANSFERRED TO ROOM 301 THIS EVENING. A/OX4, ABLE TO MAKE NEEDS KNOWN. PLEASANT AND COOPERATIVE WITH CARE. PATIENT WITH 2 LPM OXYGEN USE, BASELINE ROOM AIR. SKIN TEAR TO RIGHT FOREARM AND MEPILEX IN PLACE TO SACRUM FOR PREVENTION OF SKIN BREAK DOWN. SKIN RED BUT BLACNHABLE. SON, VIOLETA, AT BEDSIDE DURING TRANSFER. DENTAL HYGIENIST ASSESSED PATIENT AND PATIENT FOUND TO HAVE THRUSH, MD NOTIFIED AND NEW MEDICATIONS ORDERED. DENTAL HYGIENIST RECOMMENDED SOAKING PATIENT'S DENTURES IN NYSTATIN LIQUID. AFTER PATIENT FINISHED DINNER, DENTURES REMOVED AND PLACED TO DENTURE CUP TO SOAK IN NYSTATIN. NO OTHER CONCERNS AT THIS TIME.
[2024-07-25 20:41] VITALS: BP 130/42
[2024-07-25] MEDS ORDERED: Docusate Sodium 100 MG Cap PO SCH (21:00)
[2024-07-25] MEDS ORDERED: Sennosides 8.6 MG Tab PO SCH (21:00)
[2024-07-26 03:23] VITALS: BP 146/58
--- NOTE | 2024-07-26 03:39 | NUR ---
COPYING MACHINE REPAIRER SUMMARY VSS. ALERT AND ORIENTED. UP WITH ASSIST, O2 PER NC. AFFECT COOPERATIVE, SMILES WHEN SPEAKING WITH NURSE. SKIN WAS COOL TO TOUCH EARLIER, WARM BLANKETS APPLIED, EFFECTIVE, SKIN NOW WARM TO TOUCH. HAS BEEN RESTING QUIETLY WITH FEW INTERRUPTOINS, UP TO BATHROOM A FEW TIMES TO VOID, HAD ONE BM. BACK IN BED. NO C/O VOICED. CALL LIGHT IN REACH, RAILS UP X 2 AND BED IN LOW POSITION FOR SAFETY. HOB ELEVATED FOR RESP COMFORT. WILL CONTINUE TO MONITOR
[2024-07-26 04:57] LABS: BASOPHILS ABSOLUTE AUTO 0.02 K/mm3 (0.00-0.23); BASOPHILS PERCENT AUTO 0 % (0-2); EOSINOPHILS ABSOLUTE AUTO 0.06 K/mm3 (0.00-0.68); EOSINOPHILS PERCENT AUTO 0 % (0-6); Hemoglobin 9.5 g/dL (11.5-16.0); IMMATURE GRAN ABSOLUTE AUTO 0.19 K/mm3 (0.00-0.10); IMMATURE GRAN PERCENT AUTO 1 % (0-1); LYMPHOCYTES ABSOLUTE AUTO 1.53 K/mm3 (0.84-5.20); LYMPHOCYTES PERCENT AUTO 8 % (21-46); MONOCYTES ABSOLUTE AUTO 0.84 K/mm3 (0.16-1.47); MONOCYTES PERCENT AUTO 4 % (4-13); Mean Corpuscular HGB 30.4 pg (26.0-34.0); Mean Corpuscular HGB Conc 31.7 g/dL (31.5-36.5); Mean Corpuscular Volume 96 fL (80-100); Mean Platelet Volume 11.6 fL (9.1-12.4); NEUTROPHILS ABSOLUTE AUTO 17.85 K/mm3 (1.96-9.15); NEUTROPHILS PERCENT AUTO 87 % (41-73); Platelet Count 223 K/mm3 (150-400); RDW Coefficient Variation 15.5 % (11.7-14.2); RDW Standard Deviation 52.7 fL (35.1-46.3); Red Blood Cell Count 3.13 M/mm3 (3.80-5.20); White Blood Cell Count 20.49 K/mm3 (4.00-11.30)
[2024-07-26 05:14] LABS: Bun/Creatinine Ratio 45.7 (12.0-20.0); Calcium, Blood 9.5 mg/dL (8.5-10.1); Creatinine, Blood 0.79 mg/dL (0.40-1.00); Magnesium, Blood 2.1 mg/dL (1.6-2.4); Phosphorus, Blood 4.2 mg/dL (2.5-4.9); Potassium, Blood 2.9 mmol/L (3.5-5.5)
[2024-07-26 07:13] VITALS: BP 133/59
[2024-07-26] MEDS ORDERED: PredniSONE 20 MG Tab PO SCH (09:00)
[2024-07-26] MEDS ORDERED: Acetaminophen650 M1 PO (12:51)
[2024-07-26] MEDS ORDERED: ASPI81CH PO (12:52)
[2024-07-26] MEDS ORDERED: IPRAT-ALBUT 0.5-3 ML INH (12:52)
[2024-07-26] MEDS ORDERED: ATOR20 PO (12:52)
[2024-07-26] MEDS ORDERED: ALPR.25 PO (12:52)
[2024-07-26] MEDS ORDERED: BENZ100A PO (12:55)
[2024-07-26] MEDS ORDERED: DOCU100 PO (12:56)
[2024-07-26] MEDS ORDERED: Norco 5-325 Ta1 EACH PO (12:57)
[2024-07-26] MEDS ORDERED: Q-Tussin100 MG/5 M PO (12:57)
[2024-07-26] MEDS ORDERED: MELATIN3 MG PO (12:58)
[2024-07-26] MEDS ORDERED: METO25 PO (12:58)
[2024-07-26] MEDS ORDERED: NYSTATIN100000 U10 PO (12:59)
[2024-07-26] MEDS ORDERED: SENN187 PO (12:59)
[2024-07-26] MEDS ORDERED: PRED20 PO (13:01)
[2024-07-26] MEDS ORDERED: AMOCLA500 PO (13:01)
[2024-07-26] MEDS ORDERED: VISBIOME 112.51 EACH PO (13:02)
--- NOTE | 2024-07-26 13:55 | NUR ---
SHIFT SUMMARY: PATIENT A/OX4, PLEASANT AND COOPERATIVE c CARE. PATIENT REPORTS ANXIOUS, MEDICATED X1 FOR ANXIETY c GOOD EFFECT. PATIENT DENIES GENERALIZED PAIN, CP/PRESSURE, DIZZINESS AND SOB. PATIENT WAS ON 2.5L O2 AT BEGINNING OF SHIFT SATTING 98%. PATIENT O2 TITRATED TO 1L NC, SATTING 94%. PATIENT CONTINENT OF BOWEL/BLADDER, AMBULATES TO [facility] c SBA. PATIENT RECEIVED SCHEDULED MEDS PER EMAR. VITAL SIGNS REVIEWED. PATIENT RECEIVED OT DOSE PO K PER ORDER PRIOR TO DISCHARGE. PIV WAS DC'D BY ANTONY. PATIENT DISCHARGE TO [facility]. ATTEMPT TO CALL [facility] ON MULTIPLE TIMES FOR REPORTS, BUT NO ONE ANSWER THE PHONE AND GOES TO VOICE MAIL. THIS RN LEFT A MESSAGE FOR CALL BACK AT [phone]. PAT[facility]. ALL PERSONAL BELONGINGS WERE SENT c THE PATIENT. PATIENT LEFT THE ROOM AT 1333, TRASPORTED VIA W/CHAIR TO [facility].
[2024-07-26] MEDS ORDERED: Potassium Chloride 20 MEQ TabCR PO ONE (14:00)
--- NOTE | 2024-07-26 14:28 | NUR ---
ADDITIONAL NOTE: RECEIVED A CALL BACK FROM LUCIANO TARIQ AT [facility] AT 1426. TR GIVEN TO CHANDNI, VERBALIZED UNDERSTANDING AND NO FURTHER QUESTIONS AT THIS TIME.
== END 2024-07-26 13:45 | DRG 291 ==
LOC: ER 16:19 → ERHOLD 20:20 → MEDS 20:20 → PCU 07-22 18:57 → MEDS 07-25 13:47 → ENPENDDIS 07-26 13:27 → MEDS 07-26 13:45
PROVIDERS: Internal Medicine; Nurse Practitioner Acute Care; Student in an Organized Health Care Education/Training Program; ADMIT Internal Medicine
DX: I13.0 Hypertensive heart and chronic kidney disease with heart failure and stage 1 through stage 4 chronic kidney disease, or unspecified chronic kidney disease (principal); I50.33 Acute on chronic diastolic (congestive) heart failure; J96.01 Acute respiratory failure with hypoxia; J96.02 Acute respiratory failure with hypercapnia; J18.9 Pneumonia, unspecified organism; J44.0 Chronic obstructive pulmonary disease with (acute) lower respiratory infection; J44.1 Chronic obstructive pulmonary disease with (acute) exacerbation; N17.9 Acute kidney failure, unspecified; I44.2 Atrioventricular block, complete; E87.4 Mixed disorder of acid-base balance; I27.20 Pulmonary hypertension, unspecified; I08.3 Combined rheumatic disorders of mitral, aortic and tricuspid valves; R79.1 Abnormal coagulation profile; R79.89 Other specified abnormal findings of blood chemistry; J43.9 Emphysema, unspecified; I48.0 Paroxysmal atrial fibrillation; I73.9 Peripheral vascular disease, unspecified; E78.00 Pure hypercholesterolemia, unspecified; K21.9 Gastro-esophageal reflux disease without esophagitis; E87.5 Hyperkalemia; N18.2 Chronic kidney disease, stage 2 (mild); Z88.8 Allergy status to other drugs, medicaments and biological substances; Z95.0 Presence of cardiac pacemaker; Z79.51 Long term (current) use of inhaled steroids; Z87.891 Personal history of nicotine dependence; Z95.820 Peripheral vascular angioplasty status with implants and grafts
CPT/HCPCS: 0241U; 36415; 71046; 71260; 76705; 78580; 80047; 80048; 80053; 81001; 82010; 82803; 83605; 83690; 83735; 83880; 84100; 84484; 85014; 85025; 85379; 85610; 85730; 92526; 92610; 93005; 93010; 93306; 94640; 94644; 94660; 94664; 94760; 94762; 96374; 97110; 97162; 97165; 97530; 97535; 99285-25; A9270; A9540; J0456; J0696; J0780; J1644; J1650; J1940; J2405; J2470; J2543; J2919; J3480; J7030; J7040; J7050; J7512; Q9967

== ENCOUNTER 2024-08-02 18:48 | Inpatient (IN) | payer MEDICARE ==
[~2024-08-02] VITALS: Ht 160 cm; Wt 46.7 kg
[~2024-08-02 18:48] MED LIST changes: +ALPR.25 PO; +AMOCLA500 PO; +ASPI81CH PO; +ATOR20 PO; +Acetaminophen650 M1 PO; +BENZ100A PO; +DOCU100 PO; +IPRAT-ALBUT 0.5-3 ML INH; +MELATIN3 MG PO; +METO25 PO; +NYSTATIN100000 U10 PO; +Norco 5-325 Ta1 EACH PO; +PRED20 PO; +Q-Tussin100 MG/5 M PO; +SENN187 PO; +VISBIOME 112.51 EACH PO
[2024-08-02] MEDS ORDERED: LevoFLOXacin 750 MG/D5W 150ML 150 ML IV ONE (19:40)
[2024-08-02] MEDS ORDERED: Cefepime HCl 2,000 MG in NS 100 ML IV ONE (19:40)
[2024-08-02] MEDS ORDERED: Vancomycin HCL 1,000 MG in NS 250 ML IV ONE (19:55)
[2024-08-02 20:00] LABS: Base Excess Venous 17.7 mmol/L; Bicarbonate Venous 39.2 mmol/L (24.0-30.0); PCO2 Venous 61.7 mmHg (38-42); pH Blood Venous 7.44 (7.34-7.37)
[2024-08-02 20:19] LABS: Bun/Creatinine Ratio 71.9 (12.0-20.0); Calcium, Blood 8.8 mg/dL (8.5-10.1); Creatinine, Blood 0.61 mg/dL (0.40-1.00); Potassium, Blood 3.5 mmol/L (3.5-5.5)
[2024-08-02 20:22] LABS: Influenza A, PCR NEGATIVE (NEGATIVE); Influenza B, PCR NEGATIVE (NEGATIVE); SARS-Cov-2 (COVID-19) PCR, MMC NEGATIVE (NEGATIVE)
[2024-08-02 20:23] LABS: Resp Syncytial Virus, PCR POSITIVE (NEGATIVE)
[2024-08-02 20:28] LABS: BASOPHILS ABSOLUTE AUTO 0.02 K/mm3 (0.00-0.23); BASOPHILS PERCENT AUTO 0 % (0-2); EOSINOPHILS ABSOLUTE AUTO 0.01 K/mm3 (0.00-0.68); EOSINOPHILS PERCENT AUTO 0 % (0-6); Hematocrit 27.2 % (33.0-51.0); Hemoglobin 8.8 g/dL (11.5-16.0); IMMATURE GRAN ABSOLUTE AUTO 0.06 K/mm3 (0.00-0.10); IMMATURE GRAN PERCENT AUTO 0 % (0-1); LYMPHOCYTES ABSOLUTE AUTO 0.52 K/mm3 (0.84-5.20); LYMPHOCYTES PERCENT AUTO 4 % (21-46); MONOCYTES ABSOLUTE AUTO 0.57 K/mm3 (0.16-1.47); MONOCYTES PERCENT AUTO 4 % (4-13); Mean Corpuscular HGB 30.6 pg (26.0-34.0); Mean Corpuscular HGB Conc 32.4 g/dL (31.5-36.5); Mean Corpuscular Volume 94 fL (80-100); NEUTROPHILS ABSOLUTE AUTO 12.77 K/mm3 (1.96-9.15); NEUTROPHILS PERCENT AUTO 92 % (41-73); Platelet Count 149 K/mm3 (150-400); RDW Coefficient Variation 15.3 % (11.7-14.2); RDW Standard Deviation 52.6 fL (35.1-46.3); Red Blood Cell Count 2.88 M/mm3 (3.80-5.20); White Blood Cell Count 13.95 K/mm3 (4.00-11.30)
[2024-08-02] MEDS ORDERED: Albuterol 2.5 MG/3 ML VIAL INH PRN (21:20)
[2024-08-02] MEDS ORDERED: ALPRAZolam 0.25 MG Tab PO PRN (21:25)
[2024-08-02] MEDS ORDERED: Ipratropium/Albuterol SulF 2.5-0.5MG/3 ML Amp INH SCH (21:25)
[2024-08-02] MEDS ORDERED: Ondansetron HCl 2 MG / ML 2ML Vial IV PRN (21:25)
[2024-08-02] MEDS ORDERED: Azithromycin 500 MG in NS 250 ML IV SCH (21:52)
[2024-08-02] MEDS ORDERED: NS 250 ML IV PRN (22:20)
[2024-08-02 22:42] VITALS: BP 129/41
[2024-08-03] MEDS ORDERED: MethylPREDNISolone Sod Succ 125 MG Vial IV SCH
[2024-08-03 04:59] LABS: BASOPHILS ABSOLUTE AUTO 0.02 K/mm3 (0.00-0.23); BASOPHILS PERCENT AUTO 0 % (0-2); EOSINOPHILS PERCENT AUTO 0 % (0-6); Hematocrit 26.2 % (33.0-51.0); Hemoglobin 8.3 g/dL (11.5-16.0); IMMATURE GRAN ABSOLUTE AUTO 0.03 K/mm3 (0.00-0.10); IMMATURE GRAN PERCENT AUTO 0 % (0-1); LYMPHOCYTES ABSOLUTE AUTO 0.29 K/mm3 (0.84-5.20); LYMPHOCYTES PERCENT AUTO 3 % (21-46); MONOCYTES ABSOLUTE AUTO 0.18 K/mm3 (0.16-1.47); MONOCYTES PERCENT AUTO 2 % (4-13); Mean Corpuscular HGB Conc 31.7 g/dL (31.5-36.5); Mean Corpuscular Volume 95 fL (80-100); Mean Platelet Volume 12.1 fL (9.1-12.4); NEUTROPHILS ABSOLUTE AUTO 9.21 K/mm3 (1.96-9.15); NEUTROPHILS PERCENT AUTO 95 % (41-73); Platelet Count 120 K/mm3 (150-400); RDW Coefficient Variation 15.4 % (11.7-14.2); RDW Standard Deviation 52.7 fL (35.1-46.3); Red Blood Cell Count 2.77 M/mm3 (3.80-5.20); White Blood Cell Count 9.73 K/mm3 (4.00-11.30)
[2024-08-03 05:18] LABS: Albumin, Blood 2.5 g/dL (3.4-5.0); Albumin/Globulin Ratio 0.6 (0.8-1.8); Bilirubin, Total 0.3 mg/dL (0.1-1.0); Bun/Creatinine Ratio 88.2 (12.0-20.0); Calcium, Blood 8.8 mg/dL (8.5-10.1); Creatinine, Blood 0.57 mg/dL (0.40-1.00); Globulin, Blood 4.2 g/dL (2.2-4.0); Magnesium, Blood 2.3 mg/dL (1.6-2.4); Potassium, Blood 3.5 mmol/L (3.5-5.5); Total Protein, Blood 6.7 g/dL (6.4-8.2)
[2024-08-03 05:46] VITALS: BP 129/56
--- NOTE | 2024-08-03 05:54 | NUR ---
Shift Summary Pt admitted from ED for RSV, she was recent discharged 07/26 for PNU. It is supspect she has recurrent PNU. Her breath sounds are coarse and she is having trouble clearing her airway d/t weakness. She needed 4L in the ED but was reduced to 2L O2 NC. She is on cont. O2 monitor and her SPO2 has been > 95% since arrival. She is lethargic and sleepy but easily aroused. She's AOx4, 1 assist to the BSC. She has a small amount of blanchable redness on her bottom.
[2024-08-03] MEDS ORDERED: Pantoprazole Sodium 40 MG Tab PO SCH (06:00)
[2024-08-03] MEDS ORDERED: CefTRIAXone Sodium 1,000 MG in NS 100 ML IV SCH (06:00)
[2024-08-03 08:11] VITALS: BP 132/42
[2024-08-03] MEDS ORDERED: Enoxaparin 40 MG/0.4 ML SYR SC SCH (09:00)
[2024-08-03] MEDS ORDERED: Lactobacil 2-S.Thermo-Bifido 1 1 Cap PO SCH (09:00)
[2024-08-03] MEDS ORDERED: Aspirin 81 MG Chew PO SCH (09:00)
[2024-08-03] MEDS ORDERED: Melatonin 3 MG Tab PO PRN (15:35)
[2024-08-03] MEDS ORDERED: HYDROcodone 5-APAP 325 TAB PO PRN (15:35)
[2024-08-03] MEDS ORDERED: GuaiFENesin 100 MG/5 ML 5ML UDC PO PRN (15:40)
[2024-08-03] MEDS ORDERED: DiphenhydrAMINE HCL 25 MG Cap PO PRN (15:40)
[2024-08-03] MEDS ORDERED: Acetaminophen 325 MG TABLET PO PRN (15:40)
[2024-08-03] MEDS ORDERED: Benzonatate 100 MG Cap PO PRN (15:40)
[2024-08-03] MEDS ORDERED: Furosemide 40 MG Tab PO SCH (16:00)
[2024-08-03 16:03] VITALS: BP 151/42
--- NOTE | 2024-08-03 16:11 | NUR ---
SHIFT SUMMARY CONTINUES ON DROPLET ISOLATION. ON 2 LITERS NC. C/O SEVERE FATIGUE, NAPPING INTERMITTENLY. A/O X4. SKIN TEAR TO RIGHT FOREARM PRESENT WITH STERI STRIPS COVERING. ABLE TO USE BSC WITH ONE ASSIST, PATIENT UNSTEADY WITH THIS SHORT DISTANCE. DRINKING ADEQUATELY WITH DECREASED APPETITE. ABLE TO MAKE NEEDS KNOWN. CALL LIGHT IN REACH.
[2024-08-03] MEDS ORDERED: Atorvastatin 10 MG Tab PO SCH (18:00)
[2024-08-03 20:24] VITALS: BP 143/71
[2024-08-03] MEDS ORDERED: Montelukast Sodium 10 MG Tab PO SCH (21:00)
[2024-08-03] MEDS ORDERED: Metoprolol Tartrate 25 MG Tab PO SCH (21:00)
[2024-08-03] MEDS ORDERED: Docusate Sodium 100 MG Cap PO SCH (21:00)
[2024-08-03] MEDS ORDERED: Sennosides 8.6 MG Tab PO SCH (21:00)
[2024-08-04 02:38] VITALS: BP 135/54
--- NOTE | 2024-08-04 03:35 | NUR ---
SHIFT SUMM: PT IS A 78 YO FULL CODE WHO WAS ADMITTED FOR RSV IN [facility]. PT HAD HER SON AT BEDSIDE DURING THE BEG OF THE SHIFT. PT HAS A PACE MAKER AND HIST OF AFIB BUT NO TELE. PT IS ON CONT PULSE OX AND 3L OF NC. PT HAS BED ALARM SET FOR SAFETY AND IS UNSTEADY ON HER FEET AND IS A 1 PERSON ASSIST TO THE BSC. PT RECIEVED A NEW IV THIS SHIFT AND CONTINUES TO RECIEVE ANTIBIOTICS SCHEDULED. PT HAS A SKIN TEAR TO RFA WITH STERI STRIPS INTACT. I PLACED A MEPILEX ON PT'S BOTTOM PREVENTION MEASURE FOR PRESSURE WOUNDS. PT WAS MEDICATED W/TYLENOL FOR PAIN AND ZOFRAN FOR NAUSEA. PT CALLS TO MAKE NEEDS KNOWN AND HAS CALL LIGHT IN REACH.
[2024-08-04 07:39] VITALS: BP 117/43
[2024-08-04] MEDS ORDERED: Sertraline HCl 50 MG Tab PO SCH (09:00)
[2024-08-04] MEDS ORDERED: Potassium Chloride 10 Meq Tablet SA PO SCH (09:00)
[2024-08-04 16:11] VITALS: BP 112/85
--- NOTE | 2024-08-04 18:44 | NUR ---
SHIFT SUMMARY PATIENT USING BSC THIS SHIFT. NO BM, VOIDING WELL. NO C/O PAIN. INCREASED COUGH FROM YESTERDAY, GIVEN TESSALON PERLS WITH GOOD EFFECT. CALL LIGHT IN REACH, ABLE TO MAKE NEEDS KNOWN.
[2024-08-04 20:03] VITALS: BP 117/53
[2024-08-05 02:34] VITALS: BP 103/56
[2024-08-05 05:23] LABS: Hematocrit 22.4 % (33.0-51.0); Hemoglobin 7.1 g/dL (11.5-16.0); Mean Corpuscular HGB 30.5 pg (26.0-34.0); Mean Corpuscular HGB Conc 31.7 g/dL (31.5-36.5); Mean Corpuscular Volume 96 fL (80-100); Mean Platelet Volume 12.3 fL (9.1-12.4); Platelet Count 140 K/mm3 (150-400); RDW Coefficient Variation 16.2 % (11.7-14.2); RDW Standard Deviation 55.5 fL (35.1-46.3); Red Blood Cell Count 2.33 M/mm3 (3.80-5.20); White Blood Cell Count 15.01 K/mm3 (4.00-11.30)
--- NOTE | 2024-08-05 05:24 | NUR ---
SHIFT SUMMARY: PT AOX4 CALLS APPROPRIATELY AND IS COOPERATIVE IN CARE. PT TOLERATED MEDS WELL NO COMPLAINTS AT START OF SHIFT. IN THE LATE EVENING, PT AWOKE COMPLAINING OF HAVING A "PANIC ATTACK" STATING THAT THIS ALWAYS HAPPENS A LITTLE AFTER THEIR EVENING BREATHING TREATMENT. MEDICATED PER EMR. PT STATED THAT THEY FELT LIKE THEY COULDNT GET ANY AIR. WAS BREATHING SHALLOW AND HAD INCREASED PULSE AND LOWER SATS. CALLED RT AND THEY STATED THIS IS NORMAL FOR HER AFTER BREATHING TREATMENTS. THE MEDICINE STARTED TO WORK, SATS IMPROVED AND O2 TITRATED DOWN. RT STATED THAT SHE SOUNDED LIKE SHE WASNT MOVING MUCH AIR. PT WAS ABLE TO SETTLE DOWN AND STARTED SATTING WELL AGAIN WITH NO COMPLAINTS. SINCE EVENT PT HAS BEEN CALM AND RESTING WELL. PT SLEEPING, BED IN LOWEST POSITION, CALL LIGHT IN REACH. CONTINUING CARE.
[2024-08-05 06:13] LABS: Bun/Creatinine Ratio 60.4 (12.0-20.0); Calcium, Blood 9.2 mg/dL (8.5-10.1); Creatinine, Blood 0.75 mg/dL (0.40-1.00); Potassium, Blood 4.2 mmol/L (3.5-5.5)
[2024-08-05 07:26] VITALS: BP 106/67
[2024-08-05 16:42] LABS: Hematocrit 23.1 % (33.0-51.0); Hemoglobin 7.3 g/dL (11.5-16.0)
[2024-08-05 16:57] LABS: Percent Saturation 6.6 % (15.0-50.0)
--- NOTE | 2024-08-05 19:16 | NUR ---
PT QUITE PLEASANT TODAY. PAIN MANAGED WITH TYLENOL. DR ORDERING BLOOD FOR THIS CHARITY. PASSING TO [facility]. PT CONTINUES TO BE PALE. H/H IMPROVED SOME FROM 7.1-7.3 THIS AFTENOON. SON IN ROOM THIS AFTERNOOON. CONTINUES ON 2L O.2 LUNGS CRACKLES T/O. +2 BLE, TRACE BUE EDEMA NOTED. PENDING GUIAC STOOL SAMPLES. PT STATES FEELS SOME BETTER TODAY. BED IN LOW POSITIOIN, CALL LITE IN REACH, CALLS APPROP
[2024-08-05 20:15] VITALS: BP 124/55
--- NOTE | 2024-08-05 21:11 | NUR ---
NURSING NOTE: BLOOD RECIEVED 1958, NO CONSENT SIGNED BY PT, PROVIDER NOTIFIED AND PROVIDER WAS NOTIFIED AND PROVIDER ARRIVED AND CONSTENT SIGNED AT 2102, BLOOD STARTED PROMPTLY
[2024-08-05 21:34] VITALS: BP 110/43
[2024-08-05 22:06] VITALS: BP 121/44
[2024-08-05 22:38] VITALS: BP 139/45
[2024-08-06 02:07] VITALS: BP 112/40
--- NOTE | 2024-08-06 05:02 | NUR ---
SHIFT SUMMARY: PT AOX4 FORGETFULL AT TIMES, CALLS APPROPRIATELY ABLE TO MAKE NEEDS KNOWN. NEEDED BLOOD AT START OF SHIFT. SEE DOCUMENTATION FOR DETAILS. TOLERATED WELL AND STATES FEELING MUCH BETTER AFTER. 1PA TO BSC, SEVERAL VOIDS, NO BM DESPITE BOWEL PREP. PT TOLERATING MEDS WELL. PT SATTING WELL ON 2L WHICH IS BASELINE. PT EXCITED TO POTENTIALLY GO HOME VS SNF. NO ACUTE EVENTS OVERNIGHT. PT IN BED SLEEPING, BED IN LOWEST POSITION, CALL LIGHT IN REACH. CONTINUING CARE.
[2024-08-06 05:38] LABS: Hemoglobin 8.2 g/dL (11.5-16.0); Mean Corpuscular HGB 30.1 pg (26.0-34.0); Mean Corpuscular HGB Conc 32.8 g/dL (31.5-36.5); Mean Corpuscular Volume 92 fL (80-100); Mean Platelet Volume 12.3 fL (9.1-12.4); Platelet Count 118 K/mm3 (150-400); RDW Coefficient Variation 17.5 % (11.7-14.2); RDW Standard Deviation 57.8 fL (35.1-46.3); Red Blood Cell Count 2.72 M/mm3 (3.80-5.20); White Blood Cell Count 19.62 K/mm3 (4.00-11.30)
[2024-08-06 06:02] LABS: Bun/Creatinine Ratio 61.6 (12.0-20.0); Calcium, Blood 8.8 mg/dL (8.5-10.1); Creatinine, Blood 0.8 mg/dL (0.40-1.00)
[2024-08-06 07:36] VITALS: BP 133/56
[2024-08-06] MEDS ORDERED: Sod Ferric Gluc Complx/Sucrose 125 MG in NS 100 ML IV SCH (09:14)
[2024-08-06] MEDS ORDERED: Polyethylene Glycol 3350 17 gm PO SCH (10:00)
[2024-08-06] MEDS ORDERED: Azithromycin 250 MG Tab PO SCH (11:54)
[2024-08-06] MEDS ORDERED: Furosemide 10 MG/ML 4ML Vial IV SCH (12:00)
--- NOTE | 2024-08-06 17:47 | NUR ---
PT IS AOX4 AND COOPERATIVE OF CARE. PT DOING WELL TODAY. PT WORKED WELL WITH PHYSICAL THERAPY WITH GAITBELT AND WALKER. PT DENIES PAIN AND STATES SHE IS FEELING BETTER.CALL LIGHT IS IN REACH WILL CONTINUE TO MONITOR.
[2024-08-06 20:00] VITALS: BP 129/54
[2024-08-06] MEDS ORDERED: Pregabalin 50 MG Capsule PO SCH (21:55)
[2024-08-07 04:27] VITALS: BP 151/58
[2024-08-07 04:30] LABS: Stool Occult Blood Guaiac 1 Pos (Neg)
--- NOTE | 2024-08-07 04:41 | NUR ---
SHIFT SUMMARY: PT AOX4, STATES TO BE FEELING MUCH BETTER. TOLERATING MEDICATIONS WELL, SATTING WELL ON 2L O2. PT CALLS APPROPRIATELY AND IS ABLE TO MAKE NEEDS KNOWN. PT SLEPT THROUGH MOST OF THE EVENING AND THEN HAD LARGE BM, BM DARK AND TARRY. SAMPLE SENT TO LAB. PT STATES TO FEEL RELIEVED AFTER BM. STILL SATTING WELL AND DENIES ANY CP OR SOB. NO ACUTE EVENTS OVERNIGHT. PT IN BED RESTING, BED IN LOWEST POSITION, CALL LIGHT IN REACH. CONTINUING CARE.
[2024-08-07] MEDS ORDERED: Albuterol 2.5 MG/3 ML VIAL INH ONE (05:40)
--- NOTE | 2024-08-07 05:42 | NUR ---
NURSING NOTE: PT CALLED IN RN COMPLAINING OF SOB, AND SEVERE NAUSEA. PT SOUNDED TIGHT WITH SOME WHEEZING AND INCREASED WOB. PT GIVEN MEDICATION FOR ANXIETY AND NAUSEA, AND RESPIRATORY WAS CALLED TO GIVE BREATHING TREATMENT. RT CONCERNED WITH SUDDEN TAPER OF STEROIDS AND RECOMMENDED A ONE TIME 5MG OF ALBUTEROL BREATHING TREATMENT. PROVIDER NOTIFIED AND AGREED. PT STATES FEELING BETTER AFTER INITIAL BREATHING TREATMENT BUT IS ON BOARD WITH GETTING THE LONGER ONE WELL. STILL COUGHING DESPITE GIVING PT COUGH MEDICINE ABOUT AN HOUR BEFOREHAND. PT TOLERATING MEDICATION WELL. PT IN BED GETTING ALBUTEROL NEB CURRENTLY. CALL LIGHT IN REACH. CONTINUING CARE.
[2024-08-07] MEDS ORDERED: Metoclopramide HCl 5MG / ML 2ML Vial IV ONE (06:35)
[2024-08-07 07:38] VITALS: BP 124/52
[2024-08-07] MEDS ORDERED: PredniSONE 20 MG Tab PO SCH (09:00)
[2024-08-07 09:20] LABS: Hematocrit 28.4 % (33.0-51.0); Hemoglobin 8.8 g/dL (11.5-16.0); Mean Corpuscular HGB 29.8 pg (26.0-34.0); Mean Corpuscular Volume 96 fL (80-100); Mean Platelet Volume 12.7 fL (9.1-12.4); Platelet Count 124 K/mm3 (150-400); RDW Coefficient Variation 17.7 % (11.7-14.2); RDW Standard Deviation 59.7 fL (35.1-46.3); Red Blood Cell Count 2.95 M/mm3 (3.80-5.20); White Blood Cell Count 17.61 K/mm3 (4.00-11.30)
[2024-08-07 09:47] LABS: Albumin, Blood 2.6 g/dL (3.4-5.0); Anion Gap 4 mmol/L (3-11); Blood Urea Nitrogen 38 mg/dL (8-24); Bun/Creatinine Ratio 50.7 (12.0-20.0); CO2, Blood 41 mmol/L (21-32); Calcium, Blood 9.1 mg/dL (8.5-10.1); Chloride, Blood 94 mmol/L (98-108); Creatinine, Blood 0.75 mg/dL (0.40-1.00); Glomerular Filtration Rate 81 (60-); Glucose, Blood 92 mg/dL (70-99); Phosphorus, Blood 3.8 mg/dL (2.5-4.9); Sodium, Blood 135 mmol/L (136-145)
[2024-08-07 16:28] VITALS: BP 112/42
[2024-08-07] MEDS ORDERED: Furosemide 10 MG/ML 4ML Vial IV SCH (18:00)
[2024-08-07 20:09] VITALS: BP 127/44
--- NOTE | 2024-08-08 04:23 | NUR ---
PT A&OX4, PERRL, JOINERS SUPERVISOR EQUAL X 4. STANDBY ASSIST TO BSC, PT VOIDING CLEAR YELLOW URINE WITHOUT COMPLICATIONS. 2+PITTING MARKIE TO BLE, CAP REFILL UNDER 3 SEC, PPP. BLBS ARE DIMINSHED T/O, PT HAS SHALLOW BREATHS. COUGHING UP THICK VERA SPUTUM. PT AT THE BEGINNING OF THE SHIFT REPORTED FEELING ANXIOUS WHEN IT GETS DARK. DISCUSSED CONCERNS WITH PT AND REASSURED HER THAT STAFF WOULD BE NEAR BY AT ALL TIMES. XANAX AND MELATONIN GIVEN RX, PT RESTING QUIETLY T/O SHIFT WITH HOB AT 45 DEGREE TOM FOR COMFORT.
[2024-08-08 05:20] VITALS: BP 117/54
[2024-08-08 06:09] LABS: Hematocrit 26.5 % (33.0-51.0); Hemoglobin 8.2 g/dL (11.5-16.0); Mean Corpuscular HGB 29.9 pg (26.0-34.0); Mean Corpuscular HGB Conc 30.9 g/dL (31.5-36.5); Mean Corpuscular Volume 97 fL (80-100); Mean Platelet Volume 12.6 fL (9.1-12.4); Platelet Count 136 K/mm3 (150-400); RDW Coefficient Variation 17.8 % (11.7-14.2); Red Blood Cell Count 2.74 M/mm3 (3.80-5.20); White Blood Cell Count 12.94 K/mm3 (4.00-11.30)
[2024-08-08 06:32] LABS: Albumin, Blood 2.3 g/dL (3.4-5.0); Anion Gap 5 mmol/L (3-11); Blood Urea Nitrogen 32 mg/dL (8-24); Bun/Creatinine Ratio 45.3 (12.0-20.0); CO2, Blood 42 mmol/L (21-32); Calcium, Blood 9.1 mg/dL (8.5-10.1); Chloride, Blood 93 mmol/L (98-108); Creatinine, Blood 0.71 mg/dL (0.40-1.00); Glomerular Filtration Rate 87 (60-); Glucose, Blood 106 mg/dL (70-99); Phosphorus, Blood 2.8 mg/dL (2.5-4.9); Potassium, Blood 4.2 mmol/L (3.5-5.5); Sodium, Blood 136 mmol/L (136-145)
[2024-08-08 07:43] VITALS: BP 112/53
[2024-08-08 16:24] VITALS: BP 122/55
[2024-08-08] MEDS ORDERED: Furosemide 40 MG Tab PO SCH (18:00)
--- NOTE | 2024-08-08 19:38 | NUR ---
report received verified. uneventful day for pt, i offered on several occasions to help pt to chair but pt preferred to sit at bedside due to chronic back pain. pt was able to transfer self to bsc and sit strong at bedside. possible discharge sat for home with O2. due to poor circulation O2 monitor had difficult finding pulse throughout the shift, but when pt checked o2 would be in the mid 90s. pt showed no distress
[2024-08-08 20:11] VITALS: BP 125/60
[2024-08-09 02:30] VITALS: BP 128/58
--- NOTE | 2024-08-09 05:05 | NUR ---
PT A&OX4, PERRL, VOLUNTEER RECRUITMENT COORDINATOR ARE EQUAL. NO CHANGES IN LUE TRACED EDEMA. 2+PITTING EDEMA TO BLE. BLBS CONTINUE TO BE DIMISHED WITH CRACKLES T/O. PT GIVEN XANAX AND MELATONIN AT HS. PT LEFT ARM ELEVATED TO DECREASE EDEMA. PT HAD N/V ZOFRAN GIVEN RX AND PT REPORTED EFFECTIVE.
[2024-08-09 07:59] VITALS: BP 118/47
[2024-08-09 16:40] VITALS: BP 118/44
[2024-08-09 19:47] VITALS: BP 128/50
[2024-08-10 03:22] VITALS: BP 121/47
--- NOTE | 2024-08-10 07:05 | NUR ---
SHIFT SUMMARY PT SITTING UP IN BED AT START OF SHIFT. PT HAS BEEN SLEEPING PEACEFULLY THROUGH NIGHT. NO COMPLAINTS OF PAIN AT THIS TIME. CONTINUING TO MONITOR. PT PLEASANT AND COOPERATIVE WITH CARE. SHE STATES SHE IS LOOKING FORWARD TO GOING HOME.
[2024-08-10 07:35] VITALS: BP 129/42
== END 2024-08-10 13:18 | disposition home health service (06) | DRG 193 ==
LOC: ER 18:48 → MEDS 18:49 → ER 18:49 → MEDS 18:49
PROVIDERS: Emergency Medicine; Internal Medicine; Nurse Practitioner Acute Care; ADMIT Internal Medicine
PROC: 3E03329 Introduction of Other Anti-infective into Peripheral Vein, Percutaneous Approach (ICD-10-PCS; 2024-08-02)
PROC: 30233N1 Transfusion of Nonautologous Red Blood Cells into Peripheral Vein, Percutaneous Approach (ICD-10-PCS; principal; 2024-08-05)
DX: J18.9 Pneumonia, unspecified organism (principal); A41.89 Other specified sepsis; J96.01 Acute respiratory failure with hypoxia; R65.20 Severe sepsis without septic shock; I50.32 Chronic diastolic (congestive) heart failure; J44.1 Chronic obstructive pulmonary disease with (acute) exacerbation; E87.1 Hypo-osmolality and hyponatremia; J44.0 Chronic obstructive pulmonary disease with (acute) lower respiratory infection; E46 Unspecified protein-calorie malnutrition; Z68.1 Body mass index [BMI] 19.9 or less, adult; F32.A Depression, unspecified; I48.0 Paroxysmal atrial fibrillation; K21.9 Gastro-esophageal reflux disease without esophagitis; I73.9 Peripheral vascular disease, unspecified; E78.5 Hyperlipidemia, unspecified; D50.9 Iron deficiency anemia, unspecified; I27.20 Pulmonary hypertension, unspecified; I08.0 Rheumatic disorders of both mitral and aortic valves; B97.4 Respiratory syncytial virus as the cause of diseases classified elsewhere; F41.9 Anxiety disorder, unspecified; I11.0 Hypertensive heart disease with heart failure; R19.5 Other fecal abnormalities; D69.6 Thrombocytopenia, unspecified; Z95.0 Presence of cardiac pacemaker; Z90.89 Acquired absence of other organs; Z79.51 Long term (current) use of inhaled steroids; Z79.899 Other long term (current) drug therapy; Z79.82 Long term (current) use of aspirin; Z88.8 Allergy status to other drugs, medicaments and biological substances; Z79.891 Long term (current) use of opiate analgesic; Z79.2 Long term (current) use of antibiotics; Z90.710 Acquired absence of both cervix and uterus; Z87.891 Personal history of nicotine dependence; Z99.81 Dependence on supplemental oxygen
CPT/HCPCS: 0241U; 36415; 36430; 71045; 80048; 80053; 80069; 82270; 82728; 82803; 83540; 83550; 83735; 83880; 84145; 84484; 85014; 85018; 85025; 85027; 86850; 86900; 86901; 86923; 93005; 93010; 94640; 94664; 94762; 96372; 96375; 96376; 97110; 97116; 97162; 97530; 99285-25; A9270; G0378; J0456; J0692; J0696; J1650; J1940; J2405; J2765; J2916; J2919; J3370; J7050; J7512; P9016

== ENCOUNTER → 2024-09-06 | Outpatient (CLI) | payer MEDICARE ==
[2024-09-07 07:54] LABS: Stool Occult Blood Guaiac 1 Neg (Neg)
[2024-09-07 07:55] LABS: Stool Occult Blood Guaiac 2 Neg (Neg); Stool Occult Blood Guaiac 3 Neg (Neg)
== END ==
LOC: LAB 11:45 → LAB SHORT 11:45
PROVIDERS: Nurse Practitioner Family
DX: D50.0 Iron deficiency anemia secondary to blood loss (chronic) (principal); R19.5 Other fecal abnormalities
CPT/HCPCS: 82270

== ENCOUNTER 2024-09-18 06:25 | Day surgery (SDC) | payer MEDICARE ==
[2024-09-18] VITALS (29 sets, daily range): BP systolic 103–158; BP diastolic 43–143
[~2024-09-18] VITALS: Ht 160 cm; Wt 44.0 kg
[~2024-09-18 06:25] MED LIST changes: +BISA5EC PO; +COENZYME Q-10100 MG PO
[2024-09-18] MEDS ORDERED: Lactated Ringer's 1,000 ML IV SCH (07:10)
--- NOTE | 2024-09-18 08:19 | NUR ---
09/18/24 0819 Robert Allen MONITOR INTACT WITH CONTINUOUS PULSE OXIMETRY, CONTINUOUS END TITAL CO2, 3-LEAD EKG AND INTERMITTENT BLOOD PRESSURE.
--- NOTE | 2024-09-18 09:45 | NUR ---
Discharge instructions reviewed with patient. Patient verbalizes understanding. Copy given to patient to take home. Discharged via wheelchair to private car for ride home. Patient States Post-Procedure ride home has been arranged.
[2024-09-18] MEDS ORDERED: Lidocaine HCl 2% 20 MG/ML 5ML SYR IV ONE (12:11)
[2024-09-18] MEDS ORDERED: Midazolam HCl 1MG / ML 2ML Vial IV ONE (12:11)
[2024-09-18] MEDS ORDERED: Propofol 10mg/ml 20 ml Vial (Procedural) IV ONE (12:11)
[2024-10-18] MEDS ORDERED: ACET500 PO (09:27)
[2024-10-18] MEDS ORDERED: POTCHL20ER PO (09:27)
[2024-10-18] MEDS ORDERED: MUCINEX DM PO (09:29)
[2024-10-18] MEDS ORDERED: CO Q10100 MG PO (09:29)
[2024-10-18] MEDS ORDERED: IPRAT-ALBUT 0.5-3 ML INH (09:30)
[2024-10-18] MEDS ORDERED: METO25ER PO (09:30)
[2024-10-18] MEDS ORDERED: BREO ELLIPTA 21 EAC1 INH (09:32)
[2024-10-19] MEDS ORDERED: PREDNISONE 10 MG TAB (14:48)
[2024-10-19] MEDS ORDERED: PREDNISONE 10 MG TAB PO (14:49)
[2024-10-24] MEDS ORDERED: FURO80 PO (13:30)
[2024-10-24] MEDS ORDERED: RAYOS PO (13:32)
== END 2024-09-18 09:52 | disposition home or self-care (01) ==
LOC: ORSCMMR 06:25 → ORSCSDS 06:25
PROVIDERS: Internal Medicine Gastroenterology
PROC: 0DB58ZX Excision of Esophagus, Via Natural or Artificial Opening Endoscopic, Diagnostic (ICD-10-PCS; principal; 2024-09-18 08:00)
PROC: 0DJD8ZZ Inspection of Lower Intestinal Tract, Via Natural or Artificial Opening Endoscopic (ICD-10-PCS; principal; 2024-09-18 08:00)
PROC: 0D558ZZ Destruction of Esophagus, Via Natural or Artificial Opening Endoscopic (ICD-10-PCS; 2024-09-18 08:00)
DX: D50.9 Iron deficiency anemia, unspecified (principal); R19.5 Other fecal abnormalities; K31.819 Angiodysplasia of stomach and duodenum without bleeding; B37.81 Candidal esophagitis; K57.30 Diverticulosis of large intestine without perforation or abscess without bleeding; I48.91 Unspecified atrial fibrillation; J44.9 Chronic obstructive pulmonary disease, unspecified; I27.20 Pulmonary hypertension, unspecified; I50.9 Heart failure, unspecified; Z95.0 Presence of cardiac pacemaker; Z79.899 Other long term (current) drug therapy
CPT/HCPCS: 88305; 88312; J2003; J2250; J2704; J7120

== ENCOUNTER → 2024-10-02 | Outpatient (CLI) | payer MEDICARE ==
[2024-10-03 15:12] LABS: C DIFFICILE DNA NEGATIVE (Negative)
[2024-10-06 22:46] LABS: OVA AND PARASITE,FECAL INTERP Negative (Negative)
== END ==
LOC: LAB SHORT 11:19 → LAB 11:19
PROVIDERS: Internal Medicine Gastroenterology
DX: B37.9 Candidiasis, unspecified (principal)
CPT/HCPCS: 87015; 87045; 87046; 87177; 87205; 87209; 87493; 87899

== ENCOUNTER → 2024-12-19 | Outpatient (CLI) | payer MEDICARE ==
[~2024-12-19] MED LIST changes: +ACET500 PO; +BREO ELLIPTA 21 EAC1 INH; +Benzonatate100 MG PO; +CO Q10100 MG PO; +FURO80 PO; +LEVO750 PO; +METO25ER PO; +MUCINEX DM PO; +POTCHL20ER PO; +PREDNISONE 10 MG TAB; +PREDNISONE 10 MG TAB PO; +Prednisone20 MG PO; +RAYOS PO; +STIOLTO RESPIMAT4 G1; +STRIVERDI RESPIM4 G1
[2024-12-19 17:30] LABS: BASOPHILS ABSOLUTE AUTO 0.03 K/mm3 (0.00-0.23); BASOPHILS PERCENT AUTO 0 % (0-2); EOSINOPHILS ABSOLUTE AUTO 0.02 K/mm3 (0.00-0.68); EOSINOPHILS PERCENT AUTO 0 % (0-6); Hematocrit 33.3 % (33.0-51.0); Hemoglobin 10.7 g/dL (11.5-16.0); IMMATURE GRAN ABSOLUTE AUTO 0.05 K/mm3 (0.00-0.10); IMMATURE GRAN PERCENT AUTO 0 % (0-1); LYMPHOCYTES ABSOLUTE AUTO 0.55 K/mm3 (0.84-5.20); LYMPHOCYTES PERCENT AUTO 3 % (21-46); MONOCYTES ABSOLUTE AUTO 0.46 K/mm3 (0.16-1.47); MONOCYTES PERCENT AUTO 3 % (4-13); Mean Corpuscular HGB Conc 32.1 g/dL (31.5-36.5); Mean Corpuscular Volume 91 fL (80-100); NEUTROPHILS ABSOLUTE AUTO 16.67 K/mm3 (1.96-9.15); NEUTROPHILS PERCENT AUTO 94 % (41-73); NRBC ABSOLUTE 0.00 K/mm3 (0.00-0.02); NRBC Auto 0.0 /100 WBC (0.0-0.2); Platelet Count 211 K/mm3 (150-400); RDW Coefficient Variation 16.8 % (11.7-14.2); RDW Standard Deviation 55.7 fL (35.1-46.3)
[2024-12-19 17:44] LABS: Alanine Aminotransfer (ALT/SGP 40.0 U/L (12-78); Albumin, Blood 3.4 g/dL (3.4-5.0); Albumin/Globulin Ratio 0.8 (0.8-1.8); Anion Gap 8.0 mmol/L (3-11); Aspartate Aminotrans (AST/SGOT 32.0 U/L (12-37); Bilirubin, Total 0.7 mg/dL (0.1-1.0); Blood Urea Nitrogen 15.0 mg/dL (8-24); CO2, Blood 34.0 mmol/L (21-32); Calcium, Blood 9.3 mg/dL (8.5-10.1); Chloride, Blood 97.0 mmol/L (98-108); Creatinine, Blood 0.83 mg/dL (0.40-1.00); Globulin, Blood 4.4 g/dL (2.2-4.0); Glucose, Blood 104.0 mg/dL (70-99); Potassium, Blood 3.9 mmol/L (3.5-5.5); Sodium, Blood 135.0 mmol/L (136-145); Total Protein, Blood 7.8 g/dL (6.4-8.2)
== END ==
LOC: LAB SHORT 17:25 → LAB 17:25
PROVIDERS: Emergency Medicine
DX: R06.09 Other forms of dyspnea (principal)
CPT/HCPCS: 80053; 83880; 84484; 85025; 85379

== ENCOUNTER 2024-12-20 14:46 | Emergency (ER) | payer MEDICARE ==
[~2024-12-20] VITALS: Ht 160 cm; Wt 43.1 kg
[2024-12-20 15:50] LABS: Alanine Aminotransfer (ALT/SGP 36.0 U/L (12-78); Albumin, Blood 3.1 g/dL (3.4-5.0); Albumin/Globulin Ratio 0.7 (0.8-1.8); Anion Gap 4.0 mmol/L (3-11); Aspartate Aminotrans (AST/SGOT 48.0 U/L (12-37); Bilirubin, Total 0.7 mg/dL (0.1-1.0); Blood Urea Nitrogen 17.0 mg/dL (8-24); CO2, Blood 31.0 mmol/L (21-32); Calcium, Blood 9.1 mg/dL (8.5-10.1); Chloride, Blood 102.0 mmol/L (98-108); Creatinine, Blood 0.61 mg/dL (0.40-1.00); Globulin, Blood 4.4 g/dL (2.2-4.0); Glucose, Blood 88.0 mg/dL (70-99); Potassium, Blood 4.5 mmol/L (3.5-5.5); Sodium, Blood 132.0 mmol/L (136-145); Total Protein, Blood 7.5 g/dL (6.4-8.2)
[2024-12-20 15:50] LABS: BASOPHILS ABSOLUTE AUTO 0.04 K/mm3 (0.00-0.23); BASOPHILS PERCENT AUTO 0 % (0-2); EOSINOPHILS ABSOLUTE AUTO 0.21 K/mm3 (0.00-0.68); EOSINOPHILS PERCENT AUTO 2 % (0-6); Hematocrit 32.3 % (33.0-51.0); Hemoglobin 10.3 g/dL (11.5-16.0); IMMATURE GRAN ABSOLUTE AUTO 0.04 K/mm3 (0.00-0.10); IMMATURE GRAN PERCENT AUTO 0 % (0-1); LYMPHOCYTES ABSOLUTE AUTO 0.83 K/mm3 (0.84-5.20); LYMPHOCYTES PERCENT AUTO 7 % (21-46); MONOCYTES ABSOLUTE AUTO 0.78 K/mm3 (0.16-1.47); MONOCYTES PERCENT AUTO 6 % (4-13); Mean Corpuscular HGB Conc 31.9 g/dL (31.5-36.5); Mean Corpuscular Volume 93 fL (80-100); NEUTROPHILS ABSOLUTE AUTO 10.20 K/mm3 (1.96-9.15); NEUTROPHILS PERCENT AUTO 84 % (41-73); NRBC ABSOLUTE 0.00 K/mm3 (0.00-0.02); NRBC Auto 0.0 /100 WBC (0.0-0.2); Platelet Count 210 K/mm3 (150-400); RDW Coefficient Variation 16.7 % (11.7-14.2); RDW Standard Deviation 56.4 fL (35.1-46.3)
[2024-12-20] MEDS ORDERED: BENZ100A PO (15:52)
[2024-12-20 18:59] LABS: Influenza A, PCR NEGATIVE (NEGATIVE); Influenza B, PCR NEGATIVE (NEGATIVE); Resp Syncytial Virus, PCR NEGATIVE (NEGATIVE); SARS-Cov-2 (COVID-19) PCR, MMC NEGATIVE (NEGATIVE)
[2024-12-20 19:12] VITALS: BP 124/81
== END 2024-12-20 19:12 | disposition home or self-care (01) ==
LOC: ER 14:46
PROVIDERS: Student in an Organized Health Care Education/Training Program
DX: I50.9 Heart failure, unspecified (principal); J44.9 Chronic obstructive pulmonary disease, unspecified; I48.0 Paroxysmal atrial fibrillation; K21.9 Gastro-esophageal reflux disease without esophagitis; E78.5 Hyperlipidemia, unspecified; Z87.891 Personal history of nicotine dependence; Z79.52 Long term (current) use of systemic steroids; Z79.51 Long term (current) use of inhaled steroids; Z79.899 Other long term (current) drug therapy
CPT/HCPCS: 71260; 80053; 83880; 84484; 85025; 87637; 93005; 93010; 99285-25; Q9967